=== PATIENT | male | born 1960 | race Caucasian/White ===

== ENCOUNTER 2018-07-04 18:59 | Inpatient (IN) ==
[2018-07-05] MEDS ORDERED: 0.9 % Sodium Chloride 1,000 ML IVC ONE (02:14)
[2018-07-05] MEDS ORDERED: 0.9 % Sodium Chloride 1,000 ML ONE (02:23)
--- NOTE | 2018-07-05 03:25 | Internal Med History&Physical ---
<Debra Diaz M - Last Filed: 07/05/18 04:52> Date of Encounter: 07/05/18 Time of Encounter: 03:12 Internal Medicine - H&P: HPI Chief complaint: AMS & fever Admitted From: Hospital to Hospital Transfer Plans for Post Hospital Care: Transfer Sales Development Manager Care History of present illness: Mr. Ovalles is a 57 year old male history of urethral stricture and antibiotic resistant UTI presented to [facility] ED with fever and AMS. He is resident at [facility] where he was less active today and had dark urine. Found to have temperature 103F decrease to 100.2 with Tylenol. In [facility] Ed, vitals T 97.9 RR 20 HR 88 and BP 77/54 improved to 107/72. EKG was NSR. WBC 19.9. Scr 1.96. UA showed large leuk esterase and large blood thus diagnosed with UTI and started on vanc and zosyn. Given 2 L NS and 1 L Ringers. Blood and urine culture. He was transferred to [place] due to urosepsis and he follows with Dr Funez in [place]. He requires weekly straight cath for his urethral stricture but can urinate without cath. History limited due to mental status; information obtained by chart review. He points to abdomen when asked where he has pain. PMhx includes GERD, dysphasia, distant TBI, MRDD and post CVA with left sided deficits. Past Med Surg Social Fam HX - Past Medical History Medical history: arthritis, CVA, dementia, GERD, seizures Additional medical history: head injury, peg tube placement, MRDD, chronic sinusitis, left sided weakness, Urethrial stricture - straight cathed once a week Psychiatric history: no psych history, depression, PTSD - Past Surgical History Surgical History: hip replacement, tracheostomy Additional surgical history: feeding tube - removed - Social History Smoking Status: Never smoker Smokeless Tobacco Status: No Alcohol use: none Drug use: none Internal Medicine - H&P: Meds Aripiprazole [Abilify] 5 mg PO DAILY 06/27/15 [History] CarBAMazepine [Tegretol] 200 mg PO QID 06/27/15 [History] Ferrous Sulfate 325 mg PO BID 06/27/15 [History] Omeprazole [Prilosec] 40 mg PO QAM 06/27/15 [History] Ascorbate Calcium [Vitamin C] 500 mg PO DAILY 03/26/16 [History] Baclofen [Lioresal] 10 mg PO BID 03/26/16 [History] Bethanechol Chloride [Urecholine] 25 mg PO TID 03/26/16 [History] Cetirizine HCl [Zyrtec] 10 mg PO DAILY 03/26/16 [History] Citalopram Hydrobromide [Citalopram HBr] 40 mg PO DAILY 03/26/16 [History] Cyanocobalamin (Vitamin B-12) [Vitamin B-12] 100 mcg PO DAILY 03/26/16 [History] Meloxicam [Mobic] 7.5 mg PO DAILY 03/26/16 [History] Ranitidine HCl [Heartburn Relief] 150 mg PO HS PRN 03/26/16 [History] ARIPiprazole [Abilify] 10 mg PO QAM 07/05/18 [History] Albuterol Sulfate [Ventolin Hfa] 18 gm IH Q4H PRN 07/05/18 [History] Calcium Carbonate 440 mg PO DAILY 07/05/18 [History] Calcium Gluconate 10 mg PO DAILY 07/05/18 [History] Cholecalciferol (D-3) 80 units PO DAILY 07/05/18 [History] 3 Allergy/AdvReac Type Severity Reaction Status Date / Time cholestyramine Allergy Anaphylaxis Verified 06/27/15 11:07 indomethacin Allergy Anaphylaxis Verified 06/27/15 11:07 ROS unobtainable: due to mental status All Systems PM: A 10-system review of systems was performed and is negative for pertinent findings except as documented above in the HPI. Review of systems: done my head nodding and pointing - Cardiovascular Cardiovascular ROS IM: no chest pain - Gastrointestinal Gastrointestinal: abdominal pain - Constitutional Vitals: Temp Pulse Resp BP Pulse Ox 97.4 F L 72 17 94/73 97 07/05/18 00:22 07/05/18 00:22 07/05/18 00:22 07/05/18 00:22 07/05/18 00:45 General appearance: Present: cooperative, no acute distress. Absent: answers questions appropriately Exam: He is alert and able to follow commands on exam but communication is comprised of grunts, head nods and pointing. - Head Head exam: Present: atraumatic, normocephalic - Eye Eye exam: Present: EOMI, PERRL - ENT ENT exam: Present: mucous membranes dry, normal oropharynx - Respiratory Respiratory exam: Present: CTAB. Absent: rales, wheezes - Cardiovascular Cardiovascular exam: Present: RRR. Absent: gallop, rubs - GI/Abdominal GI/Abdominal exam: Present: distended, normal bowel sounds, soft, tenderness. Absent: mass Additional comments: LLQ - Extremities Exam Extremities exam: Present: pedal edema, radial pulses palpable and symmetrical. Absent: mottling, tenderness Additional comments: trace edema up to above ankles, decrease strngth in left UE and MOLLY +4/5 compared with good strength in right - Expanded Lower Extremities Exam Foot/Toe exam: Present: deformity. Absent: tenderness - Psychiatric Psychiatric exam: Present: normal affect, normal mood - Assessment and plan (1) Sepsis Current Visit: Yes Status: Acute Assessment and plan: Likely urosepsis with SIRs criteria previous temperature and leukocytosis of 19.9. Sara had concern for PNA which is less likely considering absent signs on exam but considering lack ability to voice symptoms to consider - order chest xay. - continue zosyn - d/c vanc - maintenance IVF - consult ID as clinic patient of Dr Funez and history of antibiotic resistant UTI Qualifiers: Sepsis type: sepsis due to unspecified organism Qualified Code(s): A41.9 - Sepsis, unspecified organism (2) UTI (urinary tract infection) Current Visit: Yes Status: Acute (3) Urethral stricture Current Visit: Yes Status: Acute Assessment and plan: Hx of requring straight caths with hematuria - consider Urology consult if worsens Qualifiers: Urethral stricture type: unspecified stricture type Qualified Code(s): N35.9 - Urethral stricture, unspecified (4) MELISSA (acute kidney injury) Current Visit: Yes Status: Acute Assessment and plan: Scr 1.96 compared to baseline 1.09 in December - continue IVF - hold HCTZ - monitor with repeat labs (5) DVT prophylaxis Current Visit: Yes Status: Acute Assessment and plan: heparin - Time Spent With Patient Total time spent is greater than 50% in coordination of care (as documented) at patient's floor/unit and/or counseling patient: <Nick Hartley - Last Filed: 07/05/18 04:54> Date of Encounter: 09/12/18 Internal Medicine - H&P: HPI History of present illness: Mr. Ovalles is a 57 year old male All Systems PM: A 10-system review of systems was performed and is negative for pertinent findings except as documented above in the HPI. - Constitutional Vitals: Temp Pulse Resp BP Pulse Ox 97.6 F 85 17 100/60 95 07/05/18 04:07 07/05/18 04:07 07/05/18 04:07 07/05/18 04:07 07/05/18 04:07 - Time Spent With Patient Total time spent is greater than 50% in coordination of care (as documented) at patient's floor/unit and/or counseling patient: - Attending Attestation Betzaida Ovalles is a 57 year old man who traumatic brain injury over 20 years ago. Resultant seizure disorder and neurologic deficits who presents on transfer from [facility] where he was found to have a hypotensive state and there was concern for sepsis due to urinary tract infection and is transferred here for further care. History gathering is limited as his speech is limited although he answers appropriately. Review of outside records show that he presented with a blood pressure of 77/57 , white blood cell count of 19.9 with 92% neutrophilia, lactate 1.9, creatinine 1.96 and a UA with large leukocyte esterase, over 100 white cells and 3+ bacteria on microscopy. He received 3 L of fluids and was started on pip/tazo. On arrival here he is in no acute distress with BP improved to 90/70 and heart rate of 72. He is afebrile. Physical exam depicts a soft benign abdomen and non-remarkable chest auscultation. We obtained information that he is catheterized at least weekly for urine retention. We will obtain peripheral blood cultures here and repeat urine studies. Obtain a chest x-ray for evaluation. Maintenance IV fluids at LR 125 mL per hour. Empiric antibiotics to be continued until culture and sensitivity is obtained and antibiotics can be tailored appropriately. Mechanically altered diet and DVT prophylaxis ordered. He will need close nursing monitoring. Recheck BMP and CBC in the morning to assess for reduction in creatinine and white blood cell count.
[2018-07-05 05:05] LABS: Basophils % 0.3 %; Eosinophils # 0.1 K/mcL (0.0-0.6); Eosinophils % 0.8 %; Hematocrit 34.8 % (37.5-50.1); Hemoglobin 11.8 g/dL (12.9-16.9); Immature Granulocytes % 0.3 % (0-4); Lymphocytes % 7.8 %; Mean Corpuscular HGB Conc 33.9 g/dL (31.6-35.5); Mean Corpuscular Volume 100.3 fL (83.0-100.0); Monocytes # 0.9 K/mcL (0.0-1.3); Monocytes % 7.2 %; Neutrophils # 10.6 K/mcL (1.6-8.9); Platelet Count 165 K/mcL (140-400); Red Blood Count 3.47 M/mcL (4.19-5.50); Red Cell Distribution Width 13.1 % (11.5-14.5); Segmented Neutrophils % 83.6 %
[2018-07-05 05:32] LABS: Alanine Aminotransferase 21 Units/L (7-52); Alkaline Phosphatase 46 Units/L (34-104); Aspartate Amino Transferase 37 Units/L (13-39); BUN/Creatinine Ratio 21 (6-26); Bilirubin,Direct 0.2 mg/dL (0.0-0.2); Bilirubin,Indirect 0.4 mg/dL (0.0-1.2); Bilirubin,Total 0.6 mg/dL (0.3-1.0); Blood Urea Nitrogen 30 mg/dL (6-20); Carbon Dioxide 26 mEq/L (23-29); Chloride 108 mEq/L (98-107); Globulin 2.9 g/dL (2.4-3.5); Glucose 85 mg/dL (70-105); Osmolality,Calculated 295 (280-300); Potassium 3.7 mEq/L (3.5-5.1); Sodium 140 mEq/L (136-145); Total Protein 5.9 g/dL (6.4-8.9); eGFR For Non-African Americans 52 (> 60)
[2018-07-05] MEDS ORDERED: 0.9 % Sodium Chloride 1,000 ML IVC SCH (05:45)
[2018-07-05] MEDS: *HR* Heparin 5,000 UNIT/ML VIAL SQ SCH ×3 (06:14→20:11)
[2018-07-05] MEDS: ARIPiprazole 10 MG TABLET PO SCH (06:14)
[2018-07-05] MEDS: Ringers Solution, Lactated 1,000 ML IVC SCH ×2 (06:42→15:48)
[2018-07-05] MEDS ORDERED: Famotidine 20 MG TABLET PO SCH (07:30)
[2018-07-05] MEDS: Psyllium 1 PACKET POWD.PACK PO SCH (07:56)
[2018-07-05] MEDS: Loratadine 10 MG TABLET PO SCH ×2 (08:03→08:04)
[2018-07-05] MEDS: Ascorbic Acid 500 MG TABLET PO SCH (08:03)
[2018-07-05] MEDS: Cholecalciferol (D-3) 1,000 UNIT TABLET PO SCH (08:03)
[2018-07-05] MEDS: Cyanocobalamin (B-12) 1,000 MCG TABLET PO SCH (08:04)
[2018-07-05] MEDS: Piperacillin/Tazobactam 3.375 GM in 0.9 % Sodium Chloride Mini Bag 100 ML IVPB SCH ×3 (08:12→23:25)
[2018-07-05] MEDS ORDERED: hydroCHLOROthiazide 25 MG TABLET PO SCH (09:00)
[2018-07-05] MEDS ORDERED: Baclofen 10 MG TABLET PO SCH ×2 (09:00→18:00)
--- NOTE | 2018-07-05 13:25 | Urology - Consult Note ---
<Talia Delgado N - Last Filed: 07/05/18 13:21> Date of Encounter: 07/05/18 Time of Encounter: 13:21 - Assessment and Plan (1) UTI (urinary tract infection) Current Visit: Yes Status: Acute Assessment and plan: Patient is a 57 year old male who presents with a history of urinary tract infection. Urinalysis and urine culture is pending. Blood cultures are pending. Patient's vital signs are currently stable and afebrile. May continue antibiotic infusion and reevaluate. Qualifiers: Urinary tract infection type: catheter-associated UTI Qualified Code(s): T83.511A - Infection and inflammatory reaction due to indwelling urethral catheter, initial encounter; N39.0 - Urinary tract infection, site not specified (2) Urethral stricture Current Visit: Yes Status: Acute Assessment and plan: Patient is a 57 year old male who presents with a history of urethral stricture. Nursing staff reports patient has been incontinent during admission and appears to be producing sufficient quantity of urine. Patient undergoes intermittent catheterization weekly to maintain patency. Plan to discuss options for stricture repair with POA if needed or desired. Qualifiers: Urethral stricture type: unspecified stricture type Qualified Code(s): N35.9 - Urethral stricture, unspecified Urology CN:[facility] Consult date: 07/05/18 Reason for consult Urology: Other (urethral stricture; history of recurrent UTI) History of present illness: Patient is a 57 year old male who presents with a history of urethral stricture and recurrent UTI. Patient initially presented to [facility] ED for evaluation of fever and concentrated urine. Preliminary urinalysis at [facility] suggested UTI. Patient was transferred to [facility] for urosepsis. Patient has been placed on IV Vancomycin and Zosyn. Patient is developmentally delayed and lives in a long-term setting. Patient is unable to effectively communicate symptoms. Nursing staff reports patient is afebrile and incontinent. No gross blood in urine. Patient is catheterized weekly to prevent worsening stricture. Urinalysis pending. Past Med Surg Social Fam HX - Past Medical History Medical history: arthritis, CVA, dementia, GERD, seizures Additional medical history: head injury, peg tube placement, MRDD, chronic sinusitis, left sided weakness, Urethrial stricture - straight cathed once a week Psychiatric history: no psych history, depression, PTSD - Past Surgical History Surgical History: hip replacement, tracheostomy Additional surgical history: feeding tube - removed - Social History Smoking Status: Never smoker Smokeless Tobacco Status: No Alcohol use: none Drug use: none Medications and Allergies Aripiprazole [Abilify] 5 mg PO 1500 06/27/15 [History] Ferrous Sulfate 325 mg PO BID 06/27/15 [History] Omeprazole [Prilosec] 40 mg PO QAM 06/27/15 [History] Ascorbate Calcium [Vitamin C] 500 mg PO DAILY 03/26/16 [History] Baclofen [Lioresal] 10 mg PO BID 03/26/16 [History] Bethanechol Chloride [Urecholine] 25 mg PO TID 03/26/16 [History] Cetirizine HCl [Zyrtec] 10 mg PO DAILY 03/26/16 [History] Citalopram Hydrobromide [Citalopram HBr] 40 mg PO DAILY 03/26/16 [History] Cyanocobalamin (Vitamin B-12) [Vitamin B-12] 100 mcg PO DAILY 03/26/16 [History] Meloxicam [Mobic] 7.5 mg PO DAILY 03/26/16 [History] ARIPiprazole [Abilify] 10 mg PO QAM 07/05/18 [History] Albuterol Sulfate [Ventolin Hfa] 18 gm IH Q4H PRN 07/05/18 [History] Calcium Carbonate/Vitamin D3 [Calcium 600-Vit D3 400 Tablet] 2 tab PO DAILY 10/10 [History] Hydrochlorothiazide [Microzide] 12.5 mg PO DAILY 07/05/18 [History] 3 Allergy/AdvReac Type Severity Reaction Status Date / Time cholestyramine Allergy Anaphylaxis Verified 06/27/15 11:07 indomethacin Allergy Anaphylaxis Verified 06/27/15 11:07 Review of Systems ROS unobtainable: due to mental status Exam Initial Vital Signs Temp Pulse Resp BP Pulse Ox 97.4 F L 72 17 94/73 97 07/05/18 00:22 07/05/18 00:22 07/05/18 00:22 07/05/18 00:22 07/05/18 00:22 - General physical appearance Present: no distress, no pain - Eyes Present: PERRL, normal ocular movement - ENT Present: no hearing loss, no congestion - Neck Present: no masses, trachea midline - Respiratory Present: normal respiratory effort - Cardiovascular Cardiovascular exam IM: RRR - Abdomen Abdomen: Present: soft, non tender - Integumentary Present: no rash, no abnormal pigmentation - Neurologic Present: normal coordination. Absent: disoriented Urology Results - Labs 07/05/18 04:43 07/05/18 04:43 Abnormal lab results WBC 12.6 K/mcL (4.3-11.1) H 07/05/18 04:43 RBC 3.47 M/mcL (4.19-5.50) L 07/05/18 04:43 Hgb 11.8 g/dL (12.9-16.9) L 07/05/18 04:43 Hct 34.8 % (37.5-50.1) L 07/05/18 04:43 MCV 100.3 fL (83.0-100.0) H 07/05/18 04:43 MCH 34.0 pg (28.0-33.3) H 07/05/18 04:43 MPV 9.0 fL (9.4-12.4) L 07/05/18 04:43 Neutrophils # 10.6 K/mcL (1.6-8.9) H 07/05/18 04:43 Chloride 108 mEq/L (98-107) H 07/05/18 04:43 BUN 30 mg/dL (6-20) H 07/05/18 04:43 Creatinine 1.40 mg/dL (0.70-1.30) H 07/05/18 04:43 Est GFR (Non-Af Amer) 52 (> 60) L 07/05/18 04:43 Calcium 8.0 mg/dL (8.6-10.3) L 07/05/18 04:43 Serum Total Protein 5.9 g/dL (6.4-8.9) L 07/05/18 04:43 Albumin 3.0 g/dL (3.5-5.7) L 07/05/18 04:43 Albumin/Globulin Ratio 1.0 (1.1-2.2) L 07/05/18 04:43 Diabetes panel 07/05/18 Range/Units 04:43 Sodium 140 (136-145) mEq/L Potassium 3.7 (3.5-5.1) mEq/L Chloride 108 H (98-107) mEq/L Carbon Dioxide 26 (23-29) mEq/L BUN 30 H (6-20) mg/dL Creatinine 1.40 H (0.70-1.30) mg/dL Glucose 85 (70-105) mg/dL Calcium 8.0 L (8.6-10.3) mg/dL AST 37 (13-39) Units/L ALT 21 (7-52) Units/L Alkaline Phosphatase 46 (34-104) Units/L Albumin 3.0 L (3.5-5.7) g/dL Calcium panel 07/05/18 Range/Units 04:43 Calcium 8.0 L (8.6-10.3) mg/dL Albumin 3.0 L (3.5-5.7) g/dL Pituitary panel 07/05/18 Range/Units 04:43 Sodium 140 (136-145) mEq/L Potassium 3.7 (3.5-5.1) mEq/L Chloride 108 H (98-107) mEq/L Carbon Dioxide 26 (23-29) mEq/L BUN 30 H (6-20) mg/dL Creatinine 1.40 H (0.70-1.30) mg/dL Glucose 85 (70-105) mg/dL Calcium 8.0 L (8.6-10.3) mg/dL Adrenal panel 07/05/18 Range/Units 04:43 Sodium 140 (136-145) mEq/L Potassium 3.7 (3.5-5.1) mEq/L Chloride 108 H (98-107) mEq/L Carbon Dioxide 26 (23-29) mEq/L BUN 30 H (6-20) mg/dL Creatinine 1.40 H (0.70-1.30) mg/dL Glucose 85 (70-105) mg/dL Calcium 8.0 L (8.6-10.3) mg/dL Total Bilirubin 0.6 (0.3-1.0) mg/dL AST 37 (13-39) Units/L ALT 21 (7-52) Units/L Alkaline Phosphatase 46 (34-104) Units/L Albumin 3.0 L (3.5-5.7) g/dL All other labs normal. Consult Discharge Plan - Plan Referrals: Arnaud Nixon DO [Primary Care Provider] - <Ovi Ca W - Last Filed: 07/06/18 07:29> Date of Encounter: 07/06/18 Exam Initial Vital Signs Temp Pulse Resp BP Pulse Ox 97.4 F L 72 17 94/73 97 07/05/18 00:22 18 00:22 07/05/18 00:22 07/05/18 00:22 07/05/18 00:22 Urology Results - Labs 07/06/18 04:23 07/06/18 04:23 Abnormal lab results RBC 3.29 M/mcL (4.19-5.50) L 07/06/18 04:23 Hgb 11.3 g/dL (12.9-16.9) L 07/06/18 04:23 Hct 32.6 % (37.5-50.1) L 07/06/18 04:23 MCH 34.3 pg (28.0-33.3) H 07/06/18 04:23 Chloride 109 mEq/L (98-107) H 07/06/18 04:23 BUN 21 mg/dL (6-20) H 07/06/18 04:23 Est GFR (Non-Af Amer) 58 (> 60) L 07/06/18 04:23 Calcium 8.1 mg/dL (8.6-10.3) L 07/06/18 04:23 Serum Total Protein 5.9 g/dL (6.4-8.9) L 07/05/18 04:43 Albumin 3.0 g/dL (3.5-5.7) L 07/05/18 04:43 Albumin/Globulin Ratio 1.0 (1.1-2.2) L 07/05/18 04:43 Urine Clarity Cloudy (Clear) A 07/05/18 18:57 Urine Protein 30 mg/dL (Neg-Trace) H 07/05/18 18:57 Urine Blood Large (Negative) H 07/05/18 18:57 Ur Leukocyte Esterase Large (Negative) H 07/05/18 18:57 Urine Microscopic RBC 5-15 per hpf (0-3) H 07/05/18 18:57 Ur Squamous Epith Cells Moderate per lpf (None-Few) H 07/05/18 18:57 Ur Culture Indicated? YES (NO) A 09/12/18 18:57 Nasal Screen MRSA (PCR) Positive (Negative) A 07/05/18 19:08 Diabetes panel 07/06/18 Range/Units 04:23 Sodium 139 (136-145) mEq/L Potassium 4.1 (3.5-5.1) mEq/L Chloride 109 H (98-107) mEq/L Carbon Dioxide 24 (23-29) mEq/L BUN 21 H (6-20) mg/dL Creatinine 1.27 (0.70-1.30) mg/dL Glucose 90 (70-105) mg/dL Calcium 8.1 L (8.6-10.3) mg/dL Calcium panel 07/06/18 Range/Units 04:23 Calcium 8.1 L (8.6-10.3) mg/dL Pituitary panel 07/06/18 Range/Units 04:23 Sodium 139 (136-145) mEq/L Potassium 4.1 (3.5-5.1) mEq/L Chloride 109 H (98-107) mEq/L Carbon Dioxide 24 (23-29) mEq/L BUN 21 H (6-20) mg/dL Creatinine 1.27 (0.70-1.30) mg/dL Glucose 90 (70-105) mg/dL Calcium 8.1 L (8.6-10.3) mg/dL Adrenal panel 07/06/18 Range/Units 04:23 Sodium 139 (136-145) mEq/L Potassium 4.1 (3.5-5.1) mEq/L Chloride 109 H (98-107) mEq/L Carbon Dioxide 24 (23-29) mEq/L BUN 21 H (6-20) mg/dL Creatinine 1.27 (0.70-1.30) mg/dL Glucose 90 (70-105) mg/dL Calcium 8.1 L (8.6-10.3) mg/dL All other labs normal. - Attending Attestation The patient is seen and examined independent of the PA. He is a 57-year-old man with developmental delay. There is concern for urethral stricture and he is catheterized weekly. A condom catheter was placed. His urine is clear today. A bladder scan is pending. He was admitted for urinary tract infection. I will await the results of the bladder scan. Appreciate infectious disease support. Await urine culture results and tailor antibiotics accordingly. I would recommend a cystoscopy as an outpatient to evaluate for the stricture. I think it is reasonable to continue with the weekly catheterizations to maintain patency of his stricture. This does pose an infectious risk, but he is likely colonized with bacteria. Urology will follow along. Thank you very much for allowing us to participate in Mr. Ovalles's care.
[2018-07-05] MEDS ORDERED: ARIPiprazole 5 MG TABLET PO SCH (15:00)
--- NOTE | 2018-07-05 15:08 | Infectious Disease Consult ---
Date of Encounter: 07/05/18 Time of Encounter: 15:07 Assessment and Plan (1) MELISSA (acute kidney injury) Status: Acute Assessment and plan: Likely secondary to sepsis. BUN 30 creatinine 1.4 (2) Sepsis Status: Acute Assessment and plan: Patient had to serve criteria on admission including fever and leukocytosis Likely secondary to UTI versus pneumonia Qualifiers: Sepsis type: sepsis due to unspecified organism Qualified Code(s): A41.9 - Sepsis, unspecified organism (3) UTI (urinary tract infection) Status: Acute Assessment and plan: Previous cultures in the patients have grown: Klebsiella pneumoniae on 03/30/2018, 03/07/2018, 01/17/2018 and 11/08/2017. Citrobacter from the urine culture positive on 07/14/2017, 04/01/2017, oct 2016 , and 08/26/2016. Morganella Morgagni.in 2014 All these bacteria have been susceptible to Zosyn Get a urinalysis and urine culture Dose adjust Zosyn based on creatinine clearance which is 3.375 g IV every 8 hours Duration of treatment likely 10-14 days Await urine cultures to finalize to tailor antibiotics accordingly Qualifiers: Urinary tract infection type: catheter-associated UTI Qualified Code(s): T83.511A - Infection and inflammatory reaction due to indwelling urethral catheter, initial encounter; N39.0 - Urinary tract infection, site not specified (4) Urethral stricture Status: Acute Qualifiers: Urethral stricture type: unspecified stricture type Qualified Code(s): N35.9 - Urethral stricture, unspecified (5) Pneumonia Status: Suspected Assessment and plan: Questionable pneumonia on the x-ray Patient unable to give me any history but there is no obvious cough When I spoke with the sister she told me that he aspirates Check urine legionella and pneumococcal antigen Check respiratory infectious panel Continue Zosyn Qualifiers: Pneumonia type: due to unspecified organism Laterality: unspecified laterality Lung location: unspecified part of lung Qualified Code(s): J18.9 - Pneumonia, unspecified organism Infectious Disease HPI - Data of Consult Patient: new to practice Consult date: 07/05/18 Requesting Physician: Jt Guzman MD Primary Care Provider: Arnaud Nixon DO - Consult Narrative Reason for consult: MDR UTI History of present illness: Mr. Ovalles is a 57 year old male Patient is a 57-year-old gentleman who was transferred to [place] this morning from an outside hospital for altered mental status fevers and chills. We are consult did for antibiotics recommendation. Patient is 70-year-old gentleman with past medical history mentioned below including CVA, dementia, seizures and urethral strictures with history of resistant urinary tract infections in the past presented to [facility] emergency department with fever and altered mental status. Apparently what patient was febrile with a temperature of 103 Fahrenheit. Patient is unable to give me any history. Patient apparently had a head around when he was 18 and is nonverbal. Sister who is also his guardian is at bedside. She tells me the reason the bottom and is because when he is not pain or when he is not feeling well he becomes combative and he starts acting up. So they brought him in. Since admission, patient has been afebrile, no tachycardia, presenting labs revealed a WBC of 12.6 thousand with 84% neutrophils no bands. Patients BUN and creatinine were 30 and 1.4 respectively. No urinalysis was obtained. Previous cultures in the patients have grown Klebsiella pneumoniae on 2017, 03/07/2018, 01/17/2018 and 11/08/2017. Prior to that he has had Citrobacter from the urine culture positive on 07/14/2017, 04/01/2017, every 2016, and 08/26/2016. And prior to that he had 2 urine cultures positive in 2014 which were Morganella Morgagni. Patient was started on Zosyn and we are asked to evaluate the patient and make further recommendations. On further questioning, patient has not had a urinalysis or urine culture done because he does not have a catheter. I spoke with Bill the nurse and asked him to either straight The patient fully and temporarily to look at the urine testing. Patient has not any decubitus ulcers. Rest of the physical exam appear stable. CC: Jt Guzman MD Past Med Surg Social Fam HX - Past Medical History Medical history: arthritis, CVA, dementia, GERD, seizures Additional medical history: head injury, peg tube placement, MRDD, chronic sinusitis, left sided weakness, Urethrial stricture - straight cathed once a week Psychiatric history: no psych history, depression, PTSD - Past Surgical History Surgical History: hip replacement, tracheostomy Additional surgical history: feeding tube - removed - Social History Smoking Status: Never smoker Smokeless Tobacco Status: No Alcohol use: none Drug use: none Infectious Disease-CN:Meds Aripiprazole [Abilify] 5 mg PO 1500 06/27/15 [History] Ferrous Sulfate 325 mg PO BID 06/27/15 [History] Omeprazole [Prilosec] 40 mg PO QAM 06/27/15 [History] Ascorbate Calcium [Vitamin C] 500 mg PO DAILY 03/26/16 [History] Baclofen [Lioresal] 10 mg PO BID 03/26/16 [History] Bethanechol Chloride [Urecholine] 25 mg PO TID 03/26/16 [History] Cetirizine HCl [Zyrtec] 10 mg PO DAILY 03/26/16 [History] Citalopram Hydrobromide [Citalopram HBr] 40 mg PO DAILY 03/26/16 [History] Cyanocobalamin (Vitamin B-12) [Vitamin B-12] 100 mcg PO DAILY 03/26/16 [History] Meloxicam [Mobic] 7.5 mg PO DAILY 03/26/16 [History] ARIPiprazole [Abilify] 10 mg PO QAM 07/05/18 [History] Albuterol Sulfate [Ventolin Hfa] 18 gm IH Q4H PRN 07/05/18 [History] Calcium Carbonate/Vitamin D3 [Calcium 600-Vit D3 400 Tablet] 2 tab PO DAILY 10/10 [History] Hydrochlorothiazide [Microzide] 12.5 mg PO DAILY 07/05/18 [History] 3 Allergy/AdvReac Type Severity Reaction Status Date / Time cholestyramine Allergy Anaphylaxis Verified 06/27/15 11:07 indomethacin Allergy Anaphylaxis Verified 06/27/15 11:07 ROS unobtainable: due to mental status Exam - Constitutional Vitals: Temp Pulse Resp BP Pulse Ox 98.5 F 89 16 101/67 95 07/05/18 11:08 07/05/18 11:08 07/05/18 11:08 07/05/18 11:08 07/05/18 11:08 General appearance: no acute distress, no febrile, no cooperative - Head Head exam: Present: atraumatic, normocephalic - Eye Eye exam: Present: EOMI, PERRL, sclera anicteric - Respiratory Respiratory exam: Present: CTAB. Absent: wheezes - Cardiovascular Cardiovascular exam: Present: RRR, +S1, +S2 - GI/Abdominal GI/Abdominal exam: Present: normal bowel sounds, soft. Absent: tenderness - Extremities Exam Extremities exam: Present: normal inspection. Absent: joint swelling Additional comments: No decubitus ulcer noted - Neurological Exam Neurological exam: Present: speech deficit. Absent: alert, oriented X3 Additional comments: Patient nonverbal Infectious Disease CN: Results - Labs CBC & Chem 7: 07/05/18 04:43 07/05/18 04:43 Cultures: Cultures 07/05/18 04:53 Blood Culture - Preliminary Peripheral Venipuncture Culture is incubating and being continuously monitored for growth. Final report to follow. 07/05/18 04:38 Blood Culture - Preliminary Peripheral Venipuncture Culture is incubating and being continuously monitored for growth. Final report to follow. Serology: Serology 07/05/18 07/05/18 07/05/18 Range/Units 06:01 04:43 04:43 WBC 12.6 H (4.3-11.1) K/mcL RBC 3.47 L (4.19-5.50) M/mcL Hgb 11.8 L (12.9-16.9) g/dL Hct 34.8 L (37.5-50.1) % MCV 100.3 H (83.0-100.0) fL MCH 34.0 H (28.0-33.3) pg MCHC 33.9 (31.6-35.5) g/dL RDW 13.1 (11.5-14.5) % Plt Count 165 (140-400) K/mcL MPV 9.0 L (9.4-12.4) fL Immature Gran % 0.3 (0-4) % Seg Neutrophils % 83.6 % Lymphocytes % 7.8 % Monocytes % 7.2 % Eosinophils % 0.8 % Basophils % 0.3 % Neutrophils # 10.6 H (1.6-8.9) K/mcL Lymphocytes # 1.0 (0.6-4.6) K/mcL Monocytes # 0.9 (0.0-1.3) K/mcL Eosinophils # 0.1 (0.0-0.6) K/mcL Basophils # 0.0 (0.0-0.2) K/mcL Sodium 140 (136-145) mEq/L Potassium 3.7 (3.5-5.1) mEq/L Chloride 108 H (98-107) mEq/L Carbon Dioxide 26 (23-29) mEq/L BUN 30 H (6-20) mg/dL Creatinine 1.40 H (0.70-1.30) mg/dL Est GFR ( Amer) > 60 (> 60) Est GFR (Non-Af Amer) 52 L (> 60) BUN/Creatinine Ratio 21 (6-26) Glucose 85 (70-105) mg/dL Calculated Osmolality 295 (280-300) Lactic Acid 0.8 (0.5-2.2) mmol/L Calcium 8.0 L (8.6-10.3) mg/dL Total Bilirubin 0.6 (0.3-1.0) mg/dL Direct Bilirubin 0.2 (0.0-0.2) mg/dL Indirect Bilirubin 0.4 (0.0-1.2) mg/dL AST 37 (13-39) Units/L ALT 21 (7-52) Units/L Alkaline Phosphatase 46 (34-104) Units/L Serum Total Protein 5.9 L (6.4-8.9) g/dL Albumin 3.0 L (3.5-5.7) g/dL Globulin 2.9 (2.4-3.5) g/dL Albumin/Globulin Ratio 1.0 L (1.1-2.2) Consult Discharge Plan - Plan Referrals: Arnaud Nixon DO [Primary Care Provider] -
[2018-07-05] MEDS: ARIPiprazole 5 MG TABLET PO SCH (15:54)
--- NOTE | 2018-07-05 17:43 | Internal Med Progress Note ---
<Brady Gustafson - Last Filed: 07/05/18 17:40> Hospitalist Progress Note - Encounter Date of Encounter: 07/05/18 Time of Encounter: 09:00 - Subjective Interval History: Patient was admitted for UTI and AMS Patient in no acute distress, no acute events overnight Patient complained of continued abdominal pain, no other acute complaints - Exam Vitals: Temp Pulse Resp BP Pulse Ox 99.1 F 89 16 109/68 92 07/05/18 16:59 07/05/18 16:59 07/05/18 16:59 07/05/18 16:59 07/05/18 16:59 Exam: No acute distress, alert and oriented to person and situation, she is unable to answer complicated questions Heart in regular rate and rhythm without murmur or gallop Lungs clear to auscultation without wheeze or rales or rhonchi Abdomen soft and mildly tender in suprapubic region, no organomegaly, bowel sounds present and normal Bilateral lower extremities nonedematous or erythematous, left lower extremity tender to palpation posteriorly Skin warm and dry - Assessment and Plan (1) Sepsis Current Visit: Yes Status: Acute Assessment and Plan: Patient septic secondary to white count and source, hemodynamically stable, improving Patient on day 1 of Zosyn, white count improved to 12 Plan ID consult for recommendations on antibiotic coverage as patient has history of recurrent complicated UTI Continue Zosyn for the time being Maintenance IVF (2) UTI (urinary tract infection) Current Visit: Yes Status: Acute Assessment and Plan: Patient presented with UTI Patient does make urine but is straight cast weekly secondary to urethral stricture He does still complain of abdominal pain Cultures have not revealed growth yet Plan as seen above (3) Urethral stricture Current Visit: Yes Status: Acute Assessment and Plan: Urology consultation to determine need for further intervention in the face of recurrent complicated UTIs secondary to need for repeated catheterization (4) DVT prophylaxis Current Visit: Yes Status: Acute Assessment and Plan: Heparin 5000 units subcutaneous every 8 hours (5) MELISSA (acute kidney injury) Current Visit: Yes Status: Acute Assessment and Plan: Elevated creatinine on admission, 1.4, baseline appears to be one paste on previous admissions Plan We will continue maintenance IV fluids Continue to monitor AM labs Avoid nephrotoxins and renally dose medications (6) Pneumonia Current Visit: Yes Status: Suspected Assessment and Plan: Patient was admitted from [facility] who had concern for pneumonia Chest x-ray revealed bilateral lower lobe infiltrates that could represent atelectasis or pneumonia Patient is asymptomatic and does not demonstrate physical exam findings of pneumonia Plan Continue Zosyn Defer to infectious disease specialists for alteration of antimicrobial therapy Continue to monitor for worsening respiratory function or exam findings - Time Spent with Patient Total time spent is greater than 50% in coordination of care (as documented) at patient's floor/unit and/or counseling patient: Internal Medicine: Result - Labs CBC & Chem 7: 07/05/18 04:43 07/05/18 04:43 Labs: Short CBC 07/05/18 Range/Units 04:43 WBC 12.6 H (4.3-11.1) K/mcL Hgb 11.8 L (12.9-16.9) g/dL Hct 34.8 L (37.5-50.1) % Plt Count 165 (140-400) K/mcL Neutrophils # 10.6 H (1.6-8.9) K/mcL BMP 07/05/18 04:43 Sodium 140 Potassium 3.7 Chloride 108 H Carbon Dioxide 26 BUN 30 H Creatinine 1.40 H Glucose 85 Calcium 8.0 L Liver Function 07/05/18 Range/Units 04:43 Total Bilirubin 0.6 (0.3-1.0) mg/dL Direct Bilirubin 0.2 (0.0-0.2) mg/dL AST 37 (13-39) Units/L ALT 21 (7-52) Units/L Alkaline Phosphatase 46 (34-104) Units/L Albumin 3.0 L (3.5-5.7) g/dL - Impressions Impressions Chest X-Ray 07/05/18 06:00 IMPRESSION: 1. Bibasilar pulmonary opacities may represent atelectasis, pneumonia, and/or pleural effusions. Recommend radiographic follow-up to complete resolution. 2. Unchanged nonspecific elevation of right hemidiaphragm. D/ / Dc Lebron MD / Dc Lebron MD Interpreting Provider: Dc Lebron MD Consult Discharge Plan - Plan Referrals: Arnaud Nixon DO [Primary Care Provider] - <Jt Guzman - Last Filed: 07/05/18 18:08> Hospitalist Progress Note - Encounter Date of Encounter: 07/05/18 - Exam Vitals: Temp Pulse Resp BP Pulse Ox 99.1 F 89 16 109/68 92 07/05/18 16:59 07/05/18 16:59 07/05/18 16:59 07/05/18 16:59 07/05/18 16:59 - Assessment and Plan (1) Sepsis Current Visit: Yes Status: Acute (2) UTI (urinary tract infection) Current Visit: Yes Status: Acute (3) Urethral stricture Current Visit: Yes Status: Acute (4) DVT prophylaxis Current Visit: Yes Status: Acute (5) MELISSA (acute kidney injury) Current Visit: Yes Status: Acute (6) Pneumonia Current Visit: Yes Status: Suspected - Time Spent with Patient Total time spent is greater than 50% in coordination of care (as documented) at patient's floor/unit and/or counseling patient: Internal Medicine: Result - Labs CBC & Chem 7: 07/05/18 04:43 07/05/18 04:43 Labs: Short CBC 07/05/18 Range/Units 04:43 WBC 12.6 H (4.3-11.1) K/mcL Hgb 11.8 L (12.9-16.9) g/dL Hct 34.8 L (37.5-50.1) % Plt Count 165 (140-400) K/mcL Neutrophils # 10.6 H (1.6-8.9) K/mcL BMP 07/05/18 04:43 Sodium 140 Potassium 3.7 Chloride 108 H Carbon Dioxide 26 BUN 30 H Creatinine 1.40 H Glucose 85 Calcium 8.0 L Liver Function 07/05/18 Range/Units 04:43 Total Bilirubin 0.6 (0.3-1.0) mg/dL Direct Bilirubin 0.2 (0.0-0.2) mg/dL AST 37 (13-39) Units/L ALT 21 (7-52) Units/L Alkaline Phosphatase 46 (34-104) Units/L Albumin 3.0 L (3.5-5.7) g/dL - Impressions Impressions Chest X-Ray 07/05/18 06:00 IMPRESSION: 1. Bibasilar pulmonary opacities may represent atelectasis, pneumonia, and/or pleural effusions. Recommend radiographic follow-up to complete resolution. 2. Unchanged nonspecific elevation of right hemidiaphragm. D/ / Dc Lebron MD / Dc Lebron MD Interpreting Provider: Dc Lebron MD - Attending Attestation I examined this patient and my medical decision-making was reviewed with the Resident Physician. I agree with the documented findings, disposition and treatment plan as described except to the extent set forth below. <Brady Gustafson - Last Filed: 07/05/18 17:40> (1) Sepsis Qualifiers: Sepsis type: sepsis due to unspecified organism Qualified Code(s): A41.9 - Sepsis, unspecified organism (2) UTI (urinary tract infection) Qualifiers: Urinary tract infection type: catheter-associated UTI Qualified Code(s): T83.511A - Infection and inflammatory reaction due to indwelling urethral catheter, initial encounter; N39.0 - Urinary tract infection, site not specified (3) Urethral stricture Qualifiers: Urethral stricture type: unspecified stricture type Qualified Code(s): N35.9 - Urethral stricture, unspecified (6) Pneumonia Qualifiers: Pneumonia type: due to unspecified organism Laterality: unspecified laterality Lung location: unspecified part of lung Qualified Code(s): J18.9 - Pneumonia, unspecified organism <Jt Guzman - Last Filed: 07/05/18 18:08> (1) Sepsis Qualifiers: Sepsis type: sepsis due to unspecified organism Qualified Code(s): A41.9 - Sepsis, unspecified organism (2) UTI (urinary tract infection) Qualifiers: Urinary tract infection type: catheter-associated UTI Qualified Code(s): T83.511A - Infection and inflammatory reaction due to indwelling urethral catheter, initial encounter; N39.0 - Urinary tract infection, site not specified (3) Urethral stricture Qualifiers: Urethral stricture type: unspecified stricture type Qualified Code(s): N35.9 - Urethral stricture, unspecified (6) Pneumonia Qualifiers: Pneumonia type: due to unspecified organism Laterality: unspecified laterality Lung location: unspecified part of lung Qualified Code(s): J18.9 - Pneumonia, unspecified organism
[2018-07-05 19:12] LABS: Bilirubin,Urine Negative (Negative); Blood,Urine Large (Negative); Clarity,Urine Cloudy (Clear); Color,Urine Yellow (Yellow); Glucose,Urine (UA) Normal (Normal); Ketones,Urine Negative (Negative); Leukocyte Esterase,Urine Large (Negative); Nitrite,Urine Negative (Negative); Protein,Urine 30 mg/dL (Neg-Trace); Urobilinogen,Urine Normal (Normal)
[2018-07-05 19:14] LABS: Bacteria,Urine None Seen per hpf (None-Few); Hyaline Casts,Urine None Seen per lpf (None-Few); Squamous Epithelial Cell,Urine Moderate per lpf (None-Few)
[2018-07-05 20:00] LABS: Adenovirus Not Detected (Not Detect); Bordetella Pertussis Not Detected (Not Detect); Chlamydophila pneumoniae Not Detected (Not Detect); Coronavirus 229E Not Detected (Not Detect); Coronavirus HKU1 Not Detected (Not Detect); Coronavirus NL63 Not Detected (Not Detect); Coronavirus OC43 Not Detected (Not Detect); Human Metapneumovirus Not Detected (Not Detect); Human Rhinovirus/Enterovirus Not Detected (Not Detect); Influenza A Subtype 2009 H1 Not Detected (Not Detect); Influenza A Untypeable Not Detected (Not Detect); Influenza B Not Detected (Not Detect); Mycoplasma pneumoniae Not Detected (Not Detect); Parainfluenza Virus 1 Not Detected (Not Detect); Parainfluenza Virus 2 Not Detected (Not Detect); Parainfluenza Virus 3 Not Detected (Not Detect); Parainfluenza Virus 4 Not Detected (Not Detect); Respiratory Syncytial Virus Not Detected (Not Detect)
[2018-07-05] MEDS: Baclofen 10 MG TABLET PO SCH (20:10)
[2018-07-06 05:22] LABS: Basophils % 0.5 %; Eosinophils # 0.2 K/mcL (0.0-0.6); Eosinophils % 2.6 %; Hematocrit 32.6 % (37.5-50.1); Hemoglobin 11.3 g/dL (12.9-16.9); Immature Granulocytes % 0.2 % (0-4); Lymphocytes # 1.6 K/mcL (0.6-4.6); Lymphocytes % 25.3 %; Mean Corpuscular HGB Conc 34.7 g/dL (31.6-35.5); Mean Corpuscular Hemoglobin 34.3 pg (28.0-33.3); Mean Corpuscular Volume 99.1 fL (83.0-100.0); Mean Platelet Volume 9.6 fL (9.4-12.4); Monocytes # 0.7 K/mcL (0.0-1.3); Monocytes % 11.5 %; Neutrophils # 3.7 K/mcL (1.6-8.9); Platelet Count 157 K/mcL (140-400); Red Blood Count 3.29 M/mcL (4.19-5.50); Segmented Neutrophils % 59.9 %
[2018-07-06] MEDS: *HR* Heparin 5,000 UNIT/ML VIAL SQ SCH ×3 (05:27→21:41)
[2018-07-06 05:40] LABS: BUN/Creatinine Ratio 17 (6-26); Blood Urea Nitrogen 21 mg/dL (6-20); Calcium 8.1 mg/dL (8.6-10.3); Carbon Dioxide 24 mEq/L (23-29); Chloride 109 mEq/L (98-107); Glucose 90 mg/dL (70-105); Osmolality,Calculated 291 (280-300); Potassium 4.1 mEq/L (3.5-5.1); Sodium 139 mEq/L (136-145); eGFR For Non-African Americans 58 (> 60)
[2018-07-06] MEDS: ARIPiprazole 10 MG TABLET PO SCH (06:34)
--- NOTE | 2018-07-06 08:32 | Urology Progress Note ---
Date of Encounter: 07/06/18 Time of Encounter: 08:30 - Assessment and Plan (1) UTI (urinary tract infection) Current Visit: Yes Status: Acute Assessment and plan: Patient is a 57 year old male who presents with urinary tract infection. Vital signs are reassuring and afebrile. Cultures pending. Qualifiers: Urinary tract infection type: catheter-associated UTI Qualified Code(s): T83.511A - Infection and inflammatory reaction due to indwelling urethral catheter, initial encounter; N39.0 - Urinary tract infection, site not specified (2) Urethral stricture Current Visit: Yes Status: Acute Assessment and plan: Patient is a 57 year old male who presents with urethral stricture. Urine output is sufficient and clear with condom catheter. May schedule outpatient cystoscopy to evaluate for stricture and continue weekly catheterization to maintain urethral patency. Qualifiers: Urethral stricture type: unspecified stricture type Qualified Code(s): N35.9 - Urethral stricture, unspecified Progress Note Subjective: no new complaints Narrative: Patient seen and examined sitting upright in chair eating breakfast. Patient is non-verbal and unable to ask pointed questions. Nursing staff reports adequate urine output. Objective Initial Vital Signs Temp Pulse Resp BP Pulse Ox 97.4 F L 72 17 94/73 97 07/05/18 00:22 07/05/18 00:22 07/05/18 00:22 07/05/18 00:22 07/05/18 00:22 - General physical appearance Present: no distress, no pain - Respiratory Present: normal expansion, normal respiratory effort - Abdomen Present: soft, non tender - Integumentary Present: no rash, no abnormal pigmentation - Musculoskeletal Present: normal posture - Psychiatric Absent: oriented to time, oriented to person, oriented to place, speech is normal, memory intact - Labs 07/06/18 04:23 07/06/18 04:23 Diabetes panel 07/06/18 Range/Units 04:23 Sodium 139 (136-145) mEq/L Potassium 4.1 (3.5-5.1) mEq/L Chloride 109 H (98-107) mEq/L Carbon Dioxide 24 (23-29) mEq/L BUN 21 H (6-20) mg/dL Creatinine 1.27 (0.70-1.30) mg/dL Glucose 90 (70-105) mg/dL Calcium 8.1 L (8.6-10.3) mg/dL Calcium panel 07/06/18 Range/Units 04:23 Calcium 8.1 L (8.6-10.3) mg/dL Pituitary panel 07/06/18 Range/Units 04:23 Sodium 139 (136-145) mEq/L Potassium 4.1 (3.5-5.1) mEq/L Chloride 109 H (98-107) mEq/L Carbon Dioxide 24 (23-29) mEq/L BUN 21 H (6-20) mg/dL Creatinine 1.27 (0.70-1.30) mg/dL Glucose 90 (70-105) mg/dL Calcium 8.1 L (8.6-10.3) mg/dL Adrenal panel 07/06/18 Range/Units 04:23 Sodium 139 (136-145) mEq/L Potassium 4.1 (3.5-5.1) mEq/L Chloride 109 H (98-107) mEq/L Carbon Dioxide 24 (23-29) mEq/L BUN 21 H (6-20) mg/dL Creatinine 1.27 (0.70-1.30) mg/dL Glucose 90 (70-105) mg/dL Calcium 8.1 L (8.6-10.3) mg/dL Consult Discharge Plan - Plan Referrals: Arnaud Nixon DO [Primary Care Provider] -
[2018-07-06] MEDS: Cholecalciferol (D-3) 1,000 UNIT TABLET PO SCH (10:50)
[2018-07-06] MEDS: Cyanocobalamin (B-12) 1,000 MCG TABLET PO SCH (10:51)
[2018-07-06] MEDS: Baclofen 10 MG TABLET PO SCH ×2 (10:51→21:42)
[2018-07-06] MEDS: Ascorbic Acid 500 MG TABLET PO SCH (10:51)
[2018-07-06] MEDS: Psyllium 1 PACKET POWD.PACK PO SCH (10:52)
[2018-07-06] MEDS: Piperacillin/Tazobactam 3.375 GM in 0.9 % Sodium Chloride Mini Bag 100 ML IVPB SCH ×2 (10:52→17:50)
[2018-07-06] MEDS: Loratadine 10 MG TABLET PO SCH (12:33)
[2018-07-06] MEDS: ARIPiprazole 5 MG TABLET PO SCH (14:56)
--- NOTE | 2018-07-06 15:02 | Infectious Disease Progress No ---
Date of Encounter: 07/06/18 Time of Encounter: 10:50 - Assessment and Plan (1) Sepsis Current Visit: Yes Status: Resolved The patient had two SIRS criteria on admission. Likely secondary to UTI vs. PNA. Improved. Blood cultures drawn 07/05/18 are pending x 2 sets. Qualifiers: Sepsis type: sepsis due to unspecified organism Qualified Code(s): A41.9 - Sepsis, unspecified organism (2) UTI (urinary tract infection) Current Visit: Yes Status: Acute Likely secondary to straight-catheterization. Causative organism: Unclear. Previously, urine cultures have been positive for K. pneumoniae (03/30/18, 03/07/18, 01/17/18, and 11/08/17), Citrobacter (07/14/17, 04/01, 10/2016, and 08/26/16), and M. morgannii (2014). All of these bacteria have been susceptible to Zosyn. Urinalysis positive for pyruia. Culture is pending. Continue Zosyn 3.375 grams IV Q8H. Duration of treatment depends on the clinical picture. Monitor renal function and dose-adjust antibiotics. Await cultures. De-escalate if/when able. Qualifiers: Urinary tract infection type: catheter-associated UTI Qualified Code(s): T83.510A - Infection and inflammatory reaction due to cystostomy catheter, initial encounter; N39.0 - Urinary tract infection, site not specified (3) Pneumonia Current Visit: Yes Status: Suspected Possible pneumonia noted on CXR. Causative organism unclear. High index of suspicion for aspiration. Check S. pneumo and Legionella UAT. I spoke with [facility] and they will run it off the specimen they have down there. RIP negative. Status post MBS this morning. Await results. Repeat CXR in a couple of days. Continue Zosyn as above for now. Duration of treatment depends on the clinical picture. Monitor renal function and dose-adjust antibiotics. Qualifiers: Pneumonia type: due to unspecified organism Laterality: unspecified laterality Lung location: unspecified part of lung Qualified Code(s): J18.9 - Pneumonia, unspecified organism (4) MELISSA (acute kidney injury) Current Visit: Yes Status: Resolved Likely secondary to sepsis. Resolved. (5) Urethral stricture Current Visit: Yes Status: Acute Urology consulted. Qualifiers: Urethral stricture type: unspecified stricture type Qualified Code(s): N35.9 - Urethral stricture, unspecified - Subjective Interval history: Patient seen and examined. No acute events noted overnight. Patient sitting up in the bedside chair with nursing at bedside. Patient states overall he feels well. Denies pain, shortness of breath, nausea, or vomiting. Per nursing, patient had MBS this morning. Awaiting results. Infect Dis PN-Objective Data - Labs CBC & Chem 7: 07/07/18 04:10 07/07/18 04:10 Labs: Laboratory Results - last 24 hr 07/05/18 07/05/18 07/05/18 18:57 18:57 19:08 WBC RBC Hgb Hct MCV MCH MCHC RDW Plt Count MPV Immature Gran % Seg Neutrophils % Lymphocytes % Monocytes % Eosinophils % Basophils % Neutrophils # Lymphocytes # Monocytes # Eosinophils # Basophils # Sodium Potassium Chloride Carbon Dioxide BUN Creatinine Est GFR ( Amer) Est GFR (Non-Af Amer) BUN/Creatinine Ratio Glucose Calculated Osmolality Calcium Urine Color Yellow Urine Clarity Cloudy A Urine pH 6.0 Ur Specific [place] 1.010 Urine Protein 30 H Urine Glucose (UA) Normal Urine Ketones Negative Urine Blood Large H Urine Nitrite Negative Urine Bilirubin Negative Urine Urobilinogen Normal Ur Leukocyte Esterase Large H Urine Microscopic RBC 5-15 H Ur Squamous Epith Cells Moderate H Urine Bacteria None Seen Hyaline Casts None Seen Ur Culture Indicated? YES A Nasal Screen MRSA (PCR) Positive A Chlamy pneumoniae PCR Not Detected Adenovirus (PCR) Not Detected B. pertussis DNA (PCR) Not Detected B.parapertussis DNA PCR Not Detected Coronavirus OC43 (PCR) Not Detected Coronavirus HKU1 (PCR) Not Detected Coronavirus 229E (PCR) Not Detected Coronavirus NL63 (PCR) Not Detected Human Metapneumovir PCR Not Detected Influenza A (H1) PCR Not Detected Influ A (H1N1/09) PCR Not Detected Influenza A (H3) PCR Not Detected Influenza A Untype (PCR) Not Detected Influenza Type B (PCR) Not Detected M.pneumoniae DNA (PCR) Not Detected Parainfluenza 1 (PCR) Not Detected Parainfluenza 2 (PCR) Not Detected Parainfluenza 3 (PCR) Not Detected Parainfluenza 4 (PCR) Not Detected RSV (PCR) Not Detected Entero/Rhino (PCR) Not Detected 07/06/18 07/06/18 04:23 04:23 WBC 6.2 D RBC 3.29 L Hgb 11.3 L Hct 32.6 L MCV 99.1 MCH 34.3 H MCHC 34.7 RDW 13.0 Plt Count 157 MPV 9.6 Immature Gran % 0.2 Seg Neutrophils % 59.9 Lymphocytes % 25.3 Monocytes % 11.5 Eosinophils % 2.6 Basophils % 0.5 Neutrophils # 3.7 Lymphocytes # 1.6 Monocytes # 0.7 Eosinophils # 0.2 Basophils # 0.0 Sodium 139 Potassium 4.1 Chloride 109 H Carbon Dioxide 24 BUN 21 H Creatinine 1.27 Est GFR ( Amer) > 60 Est GFR (Non-Af Amer) 58 L BUN/Creatinine Ratio 17 Glucose 90 Calculated Osmolality 291 Calcium 8.1 L Urine Color Urine Clarity Urine pH Ur Specific [place] Urine Protein Urine Glucose (UA) Urine Ketones Urine Blood Urine Nitrite Urine Bilirubin Urine Urobilinogen Ur Leukocyte Esterase Urine Microscopic RBC Ur Squamous Epith Cells Urine Bacteria Hyaline Casts Ur Culture Indicated? Nasal Screen MRSA (PCR) Chlamy pneumoniae PCR Adenovirus (PCR) B. pertussis DNA (PCR) B.parapertussis DNA PCR Coronavirus OC43 (PCR) Coronavirus HKU1 (PCR) Coronavirus 229E (PCR) Coronavirus NL63 (PCR) Human Metapneumovir PCR Influenza A (H1) PCR Influ A (H1N1/09) PCR Influenza A (H3) PCR Influenza A Untype (PCR) Influenza Type B (PCR) M.pneumoniae DNA (PCR) Parainfluenza 1 (PCR) Parainfluenza 2 (PCR) Parainfluenza 3 (PCR) Parainfluenza 4 (PCR) RSV (PCR) Entero/Rhino (PCR) Cultures: Cultures 07/05/18 04:53 Blood Culture - Preliminary Peripheral Venipuncture Culture is incubating and being continuously monitored for growth. Final report to follow. 07/05/18 04:38 Blood Culture - Preliminary Peripheral Venipuncture Culture is incubating and being continuously monitored for growth. Final report to follow. Serology 07/05/18 07/05/18 07/05/18 Range/Units 19:08 18:57 18:57 Urine Color Yellow (Yellow) Urine Clarity Cloudy A (Clear) Urine pH 6.0 (5.0-8.0) pH Units Ur Specific [place] 1.010 (1.010-1.025) Urine Protein 30 H (Neg-Trace) mg/dL Urine Glucose (UA) Normal (Normal) mg/dL Urine Ketones Negative (Negative) mg/dL Urine Blood Large H (Negative) Urine Nitrite Negative (Negative) Urine Bilirubin Negative (Negative) Urine Urobilinogen Normal (Normal) mg/dL Ur Leukocyte Esterase Large H (Negative) Urine Microscopic RBC 5-15 H (0-3) per hpf Ur Squamous Epith Cells Moderate H (None-Few) per lpf Urine Bacteria None Seen (None-Few) per hpf Hyaline Casts None Seen (None-Few) per lpf Ur Culture Indicated? YES A (NO) Nasal Screen MRSA (PCR) Positive A (Negative) Chlamy pneumoniae PCR Not Detected (Not Detect) Adenovirus (PCR) Not Detected (Not Detect) B. pertussis DNA (PCR) Not Detected (Not Detect) B.parapertussis DNA PCR Not Detected (Not Detect) Coronavirus OC43 (PCR) Not Detected (Not Detect) Coronavirus HKU1 (PCR) Not Detected (Not Detect) Coronavirus 229E (PCR) Not Detected (Not Detect) Coronavirus NL63 (PCR) Not Detected (Not Detect) Human Metapneumovir PCR Not Detected (Not Detect) Influenza A (H1) PCR Not Detected (Not Detect) Influ A (H1N1/09) PCR Not Detected (Not Detect) Influenza A (H3) PCR Not Detected (Not Detect) Influenza A Untype (PCR) Not Detected (Not Detect) Influenza Type B (PCR) Not Detected (Not Detect) M.pneumoniae DNA (PCR) Not Detected (Not Detect) Parainfluenza 1 (PCR) Not Detected (Not Detect) Parainfluenza 2 (PCR) Not Detected (Not Detect) Parainfluenza 3 (PCR) Not Detected (Not Detect) Parainfluenza 4 (PCR) Not Detected (Not Detect) RSV (PCR) Not Detected (Not Detect) Entero/Rhino (PCR) Not Detected (Not Detect) - Impressions Impressions Videofluoroscopic Swallow 07/06/18 08:30 IMPRESSION: Impaired swallowing with multiple episodes of deep penetration. Please see separate speech pathology report for full discussion of findings and recommendations. D/ / Darlene Puente MD / Darlene Puente MD Interpreting Provider: Darlene Puente MD Exam - Constitutional Vitals: Temp Pulse Resp BP Pulse Ox 98.2 F 74 15 127/83 96 07/06/18 12:00 07/06/18 12:00 07/06/18 12:00 07/06/18 12:00 07/06/18 12:00 General appearance: cooperative, no acute distress, obese - Head Head exam: Present: atraumatic, normal inspection, normocephalic - Eye Eye exam: Present: EOMI, normal appearance, PERRL Pupils: Present: normal accommodation - ENT ENT exam: Present: mucous membranes moist - Neck Neck exam: Present: normal inspection - Respiratory Respiratory exam: Present: CTAB. Absent: rales, respiratory distress, rhonchi, wheezes - Cardiovascular Cardiovascular exam: Present: RRR, +S1, +S2 - GI/Abdominal GI/Abdominal exam: Present: normal bowel sounds, soft. Absent: distended, tenderness Additional comments: Sneed catheter noted to be draining clear yellow urine. - Extremities Exam Extremities exam: Present: normal inspection. Absent: joint swelling, pedal edema, tenderness - Neurological Exam Neurological exam: Present: alert, no focal deficits. Absent: oriented X3 ( Oriented to person only.) - Psychiatric Psychiatric exam: Present: normal affect, normal mood - Skin Skin exam: Present: dry, intact, normal color, warm Consult Discharge Plan - Plan Referrals: Arnaud Nixon DO [Primary Care Provider] - 07/12/18 1:30 pm - Attending Attestation I examined this patient and my medical decision-making was reviewed with the Resident Physician. I agree with the documented findings, disposition and treatment plan as described except to the extent set forth below.
--- NOTE | 2018-07-06 17:59 | Internal Med Progress Note ---
<Brady Gustafson - Last Filed: 07/06/18 17:57> Hospitalist Progress Note - Encounter Date of Encounter: 07/06/18 Time of Encounter: 13:00 - Subjective Interval History: Patient was admitted for UTI and AMS Patient in no acute distress, no acute events overnight Patient complained of continued abdominal pain, no other acute complaints - Exam Vitals: Temp Pulse Resp BP Pulse Ox 98.1 F 75 15 98/74 96 07/06/18 16:00 07/06/18 16:00 07/06/18 16:00 07/06/18 16:00 07/06/18 16:00 Exam: No acute distress, alert and oriented to person and situation, he is unable to answer complicated questions Heart in regular rate and rhythm without murmur or gallop Lungs exhibit scattered wheeze, no rales or rhonchi Abdomen soft and mildly tender in suprapubic region, no organomegaly, bowel sounds present and normal Bilateral lower extremities nonedematous or erythematous, left lower extremity not tender to palpation posteriorly Skin warm and dry - Assessment and Plan (1) Sepsis Current Visit: Yes Status: Acute Assessment and Plan: Patient septic secondary to white count and source at admission, no longer has white count, hemodynamically stable, improving Patient on day 2 of Zosyn Plan ID consult for recommendations on antibiotic coverage as patient has history of recurrent complicated UTI Continue Zosyn for the time being Maintenance IVF (2) UTI (urinary tract infection) Current Visit: Yes Status: Acute Assessment and Plan: Patient presented with UTI Patient does make urine but is straight cast weekly secondary to urethral stricture He does still complain of abdominal pain Cultures have not revealed growth yet Plan as seen above (3) Urethral stricture Current Visit: Yes Status: Acute Assessment and Plan: Urology consulted and assessed, considering outpatient cystoscopy (4) DVT prophylaxis Current Visit: Yes Status: Acute Assessment and Plan: Heparin 5000 units subcutaneous every 8 hours (5) MELISSA (acute kidney injury) Current Visit: Yes Status: Resolved Assessment and Plan: Elevated creatinine on admission, 1.27 today, baseline appears to be 1 based on previous admissions Plan We will continue maintenance IV fluids Continue to monitor AM labs Avoid nephrotoxins and renally dose medications (6) Pneumonia Current Visit: Yes Status: Suspected Assessment and Plan: Patient was admitted from [facility] who had concern for pneumonia Chest x-ray revealed bilateral lower lobe infiltrates that could represent atelectasis or pneumonia Patient is asymptomatic but does have mild physical exam findings Plan Continue Zosyn Defer to infectious disease specialists for alteration of antimicrobial therapy Continue to monitor for worsening respiratory function or exam findings - Time Spent with Patient Total time spent is greater than 50% in coordination of care (as documented) at patient's floor/unit and/or counseling patient: Internal Medicine: Result - Labs CBC & Chem 7: 07/06/18 04:23 07/06/18 04:23 Labs: Short CBC 07/06/18 Range/Units 04:23 WBC 6.2 D (4.3-11.1) K/mcL Hgb 11.3 L (12.9-16.9) g/dL Hct 32.6 L (37.5-50.1) % Plt Count 157 (140-400) K/mcL Neutrophils # 3.7 (1.6-8.9) K/mcL BMP 07/06/18 04:23 Sodium 139 Potassium 4.1 Chloride 109 H Carbon Dioxide 24 BUN 21 H Creatinine 1.27 Glucose 90 Calcium 8.1 L Urine 07/05/18 Range/Units 18:57 Urine Color Yellow (Yellow) Urine Clarity Cloudy A (Clear) Urine pH 6.0 (5.0-8.0) pH Units Ur Specific [place] 1.010 (1.010-1.025) Urine Protein 30 H (Neg-Trace) mg/dL Urine Glucose (UA) Normal (Normal) mg/dL - Impressions Impressions Videofluoroscopic Swallow 07/06/18 08:30 IMPRESSION: Impaired swallowing with multiple episodes of deep penetration. Please see separate speech pathology report for full discussion of findings and recommendations. D/ / Darlene Puente MD / Darlene Puente MD Interpreting Provider: Darlene Puente MD Consult Discharge Plan - Plan Referrals: Arnaud Nixon DO [Primary Care Provider] - <Jt Guzman - Last Filed: 07/06/18 18:11> Hospitalist Progress Note - Encounter Date of Encounter: 07/06/18 - Exam Vitals: Temp Pulse Resp BP Pulse Ox 98.1 F 75 15 98/74 96 07/06/18 16:00 07/06/18 16:00 07/06/18 16:00 07/06/18 16:00 07/06/18 16:00 - Assessment and Plan (1) Sepsis Current Visit: Yes Status: Acute (2) UTI (urinary tract infection) Current Visit: Yes Status: Acute (3) Urethral stricture Current Visit: Yes Status: Acute (4) DVT prophylaxis Current Visit: Yes Status: Acute (5) MELISSA (acute kidney injury) Current Visit: Yes Status: Resolved (6) Pneumonia Current Visit: Yes Status: Suspected - Time Spent with Patient Total time spent is greater than 50% in coordination of care (as documented) at patient's floor/unit and/or counseling patient: Internal Medicine: Result - Labs CBC & Chem 7: 07/06/18 04:23 07/06/18 04:23 Labs: Short CBC 07/06/18 Range/Units 04:23 WBC 6.2 D (4.3-11.1) K/mcL Hgb 11.3 L (12.9-16.9) g/dL Hct 32.6 L (37.5-50.1) % Plt Count 157 (140-400) K/mcL Neutrophils # 3.7 (1.6-8.9) K/mcL BMP 07/06/18 04:23 Sodium 139 Potassium 4.1 Chloride 109 H Carbon Dioxide 24 BUN 21 H Creatinine 1.27 Glucose 90 Calcium 8.1 L Urine 07/05/18 Range/Units 18:57 Urine Color Yellow (Yellow) Urine Clarity Cloudy A (Clear) Urine pH 6.0 (5.0-8.0) pH Units Ur Specific [place] 1.010 (1.010-1.025) Urine Protein 30 H (Neg-Trace) mg/dL Urine Glucose (UA) Normal (Normal) mg/dL - Impressions Impressions Videofluoroscopic Swallow 07/06/18 08:30 IMPRESSION: Impaired swallowing with multiple episodes of deep penetration. Please see separate speech pathology report for full discussion of findings and recommendations. D/ / Darlene Puente MD / Darlene Puente MD Interpreting Provider: Darlene Puente MD - Attending Attestation I examined this patient and my medical decision-making was reviewed with the Resident Physician. I agree with the documented findings, disposition and treatment plan as described except to the extent set forth below. <Brady Gustafson - Last Filed: 07/06/18 17:57> (1) Sepsis Qualifiers: Sepsis type: sepsis due to unspecified organism Qualified Code(s): A41.9 - Sepsis, unspecified organism (2) UTI (urinary tract infection) Qualifiers: Urinary tract infection type: catheter-associated UTI Qualified Code(s): T83.511A - Infection and inflammatory reaction due to indwelling urethral catheter, initial encounter; N39.0 - Urinary tract infection, site not specified (3) Urethral stricture Qualifiers: Urethral stricture type: unspecified stricture type Qualified Code(s): N35.9 - Urethral stricture, unspecified (6) Pneumonia Qualifiers: Pneumonia type: due to unspecified organism Laterality: unspecified laterality Lung location: unspecified part of lung Qualified Code(s): J18.9 - Pneumonia, unspecified organism <Jt Guzman - Last Filed: 07/06/18 18:11> (1) Sepsis Qualifiers: Sepsis type: sepsis due to unspecified organism Qualified Code(s): A41.9 - Sepsis, unspecified organism (2) UTI (urinary tract infection) Qualifiers: Urinary tract infection type: catheter-associated UTI Qualified Code(s): T83.511A - Infection and inflammatory reaction due to indwelling urethral catheter, initial encounter; N39.0 - Urinary tract infection, site not specified (3) Urethral stricture Qualifiers: Urethral stricture type: unspecified stricture type Qualified Code(s): N35.9 - Urethral stricture, unspecified (6) Pneumonia Qualifiers: Pneumonia type: due to unspecified organism Laterality: unspecified laterality Lung location: unspecified part of lung Qualified Code(s): J18.9 - Pneumonia, unspecified organism
[2018-07-07] MEDS: Piperacillin/Tazobactam 3.375 GM in 0.9 % Sodium Chloride Mini Bag 100 ML IVPB SCH ×3 (01:41→15:09)
[2018-07-07 04:43] LABS: Basophils % 0.6 %; Eosinophils # 0.2 K/mcL (0.0-0.6); Eosinophils % 4.8 %; Hematocrit 35.7 % (37.5-50.1); Hemoglobin 11.9 g/dL (12.9-16.9); Immature Granulocytes % 0.4 % (0-4); Lymphocytes # 1.6 K/mcL (0.6-4.6); Mean Corpuscular HGB Conc 33.3 g/dL (31.6-35.5); Mean Corpuscular Hemoglobin 32.3 pg (28.0-33.3); Mean Platelet Volume 9.2 fL (9.4-12.4); Monocytes # 0.5 K/mcL (0.0-1.3); Monocytes % 10.7 %; Neutrophils # 2.6 K/mcL (1.6-8.9); Platelet Count 190 K/mcL (140-400); Red Blood Count 3.68 M/mcL (4.19-5.50); Red Cell Distribution Width 13.1 % (11.5-14.5); Segmented Neutrophils % 52.5 %
[2018-07-07] MEDS: *HR* Heparin 5,000 UNIT/ML VIAL SQ SCH ×3 (05:03→21:53)
[2018-07-07 05:04] LABS: BUN/Creatinine Ratio 15 (6-26); Blood Urea Nitrogen 17 mg/dL (6-20); Calcium 8.4 mg/dL (8.6-10.3); Carbon Dioxide 23 mEq/L (23-29); Chloride 109 mEq/L (98-107); Glucose 86 mg/dL (70-105); Osmolality,Calculated 291 (280-300); Sodium 140 mEq/L (136-145); eGFR For Non-African Americans > 60 (> 60)
[2018-07-07] MEDS: ARIPiprazole 10 MG TABLET PO SCH (07:02)
[2018-07-07] MEDS: Ascorbic Acid 500 MG TABLET PO SCH (09:16)
[2018-07-07] MEDS: Baclofen 10 MG TABLET PO SCH ×2 (09:16→21:52)
[2018-07-07] MEDS: Cholecalciferol (D-3) 1,000 UNIT TABLET PO SCH (09:16)
[2018-07-07] MEDS: Loratadine 10 MG TABLET PO SCH (09:16)
[2018-07-07] MEDS: Psyllium 1 PACKET POWD.PACK PO SCH (09:16)
[2018-07-07] MEDS: Cyanocobalamin (B-12) 1,000 MCG TABLET PO SCH (09:16)
--- NOTE | 2018-07-07 09:55 | Internal Med Progress Note ---
<Darrick Kimble - Last Filed: 07/07/18 09:53> Hospitalist Progress Note - Encounter Date of Encounter: 07/07/18 Time of Encounter: 09:53 - Subjective Interval History: 57-year-old male evaluated at bedside. He denies nausea, vomiting, diarrhea, fever, chills, chest pain, shortness of breath. He has no complaints today. - Exam Vitals: Temp Pulse Resp BP Pulse Ox 98 F 73 17 142/83 97 07/07/18 07:37 07/07/18 07:37 07/07/18 07:37 07/07/18 07:37 07/07/18 07:37 Exam: Gen.: No acute distress, can answer some simple questions. CV: RRR, no murmurs, reps, gallops. Lungs: clear chat auscultation bilaterally abdomen: soft, mildly distended, nontender, bowel sounds present. Strep remedies: all 4 extremities shown on pitting edema present. - Assessment and Plan (1) Sepsis Current Visit: Yes Status: Resolved Assessment and Plan: Patient presented as transfer from [facility] with fever as high as 102, leukocytosis, hypotension with BP of 77/54 source of infection likely secondary to UTI, possibly pneumonia (aspiration). Of note, patient has history of chronic UTIs growing Klebsiella, Citrobacter, Morganella Chest x-ray from 07/05 showed by basilar pulmonary opacities: atelectasis versus pneumonia. 07/05 blood cultures X2 no growth to date Legionella and strep pneumoniae antigens negative 07/05 urine culture no growth to date. RIP negative nasal MRSA screen positive patient had MBS that showed mild moderate oropharyngeal dysphasia. Speech recommended. Textures and thin liquids Plan appreciate ID recommendations regarding antibiotic coverage-sepsis currently resolved Continue Zosyn day 3 (2) UTI (urinary tract infection) Current Visit: Yes Status: Acute Assessment and Plan: Plan as above (3) MELISSA (acute kidney injury) Current Visit: Yes Status: Resolved Assessment and Plan: MELISSA likely secondary to sepsis. Currently resolved. Continue to monitor. (4) Pneumonia Current Visit: Yes Status: Suspected Assessment and Plan: Plan as #1 above (5) Urethral stricture Current Visit: Yes Status: Acute Assessment and Plan: History of urethral shook sure requiring intermittent straight catheterization. Plan: appreciate urology recommendations. Per urology, plan is to schedule outpatient cystoscopy to evaluate for stricture and continue weekly catheterization to maintain urethral patency. (6) DVT prophylaxis Current Visit: Yes Status: Acute Assessment and Plan: Heparin SQ DVT Prophylaxis: Heparin SQ - Time Spent with Patient Total time spent is greater than 50% in coordination of care (as documented) at patient's floor/unit and/or counseling patient: Internal Medicine: Result - Labs CBC & Chem 7: 07/07/18 04:10 07/07/18 04:10 Labs: Short CBC 07/07/18 Range/Units 04:10 WBC 5.0 (4.3-11.1) K/mcL Hgb 11.9 L (12.9-16.9) g/dL Hct 35.7 L (37.5-50.1) % Plt Count 190 (140-400) K/mcL Neutrophils # 2.6 (1.6-8.9) K/mcL BMP 07/07/18 04:10 Sodium 140 Potassium 4.0 Chloride 109 H Carbon Dioxide 23 BUN 17 Creatinine 1.11 Glucose 86 Calcium 8.4 L - Impressions Impressions Videofluoroscopic Swallow 07/06/18 08:30 IMPRESSION: Impaired swallowing with multiple episodes of deep penetration. Please see separate speech pathology report for full discussion of findings and recommendations. D/ / Darlene Puente MD / Darlene Puente MD Interpreting Provider: Darlene Puente MD Consult Discharge Plan - Plan Referrals: Arnaud Nixon DO [Primary Care Provider] - 07/12/18 1:30 pm <Jt Guzman - Last Filed: 07/07/18 15:10> Hospitalist Progress Note - Encounter Date of Encounter: 07/07/18 - Exam Vitals: Temp Pulse Resp BP Pulse Ox 97.7 F 66 18 138/72 95 07/07/18 12:02 07/07/18 12:02 07/07/18 12:02 07/07/18 12:02 07/07/18 12:02 - Assessment and Plan (1) Sepsis Current Visit: Yes Status: Resolved (2) UTI (urinary tract infection) Current Visit: Yes Status: Ruled-out (3) Urethral stricture Current Visit: Yes Status: Acute (4) MELISSA (acute kidney injury) Current Visit: Yes Status: Resolved (5) Pneumonia Current Visit: Yes Status: Suspected (6) DVT prophylaxis Current Visit: Yes Status: Acute - Time Spent with Patient Total time spent is greater than 50% in coordination of care (as documented) at patient's floor/unit and/or counseling patient: Internal Medicine: Result - Labs CBC & Chem 7: 07/07/18 04:10 07/07/18 04:10 Labs: Short CBC 07/07/18 Range/Units 04:10 WBC 5.0 (4.3-11.1) K/mcL Hgb 11.9 L (12.9-16.9) g/dL Hct 35.7 L (37.5-50.1) % Plt Count 190 (140-400) K/mcL Neutrophils # 2.6 (1.6-8.9) K/mcL BMP 07/07/18 04:10 Sodium 140 Potassium 4.0 Chloride 109 H Carbon Dioxide 23 BUN 17 Creatinine 1.11 Glucose 86 Calcium 8.4 L - Impressions Impressions Chest X-Ray 07/07/18 11:06 IMPRESSION: Persistent bibasilar infiltrates with a possible new left parahilar infiltrate. Findings suggest a multi lobar pneumonia D/ / Selvin Barry MD / Selvin Barry MD Interpreting Provider: Selvin Barry MD - Attending Attestation I examined this patient and my medical decision-making was reviewed with the Resident Physician. I agree with the documented findings, disposition and treatment plan as described except to the extent set forth below. <Lolita Kimbleia - Last Filed: 07/07/18 09:53> (1) Sepsis Qualifiers: Sepsis type: sepsis due to unspecified organism Qualified Code(s): A41.9 - Sepsis, unspecified organism (2) UTI (urinary tract infection) Qualifiers: Urinary tract infection type: catheter-associated UTI Qualified Code(s): T83.511A - Infection and inflammatory reaction due to indwelling urethral catheter, initial encounter; N39.0 - Urinary tract infection, site not specified (4) Pneumonia Qualifiers: Pneumonia type: due to unspecified organism Laterality: unspecified laterality Lung location: unspecified part of lung Qualified Code(s): J18.9 - Pneumonia, unspecified organism (5) Urethral stricture Qualifiers: Urethral stricture type: unspecified stricture type Qualified Code(s): N35.9 - Urethral stricture, unspecified <Jt Guzman - Last Filed: 07/07/18 15:10> (1) Sepsis Qualifiers: Sepsis type: sepsis due to unspecified organism Qualified Code(s): A41.9 - Sepsis, unspecified organism (2) UTI (urinary tract infection) Qualifiers: Urinary tract infection type: catheter-associated UTI Indwelling urinary catheter type: unspecified Encounter type: initial encounter Qualified Code(s) : T83.511A - Infection and inflammatory reaction due to indwelling urethral catheter, initial encounter; N39.0 - Urinary tract infection, site not specified (3) Urethral stricture Qualifiers: Urethral stricture type: unspecified stricture type Qualified Code(s): N35.9 - Urethral stricture, unspecified (5) Pneumonia Qualifiers: Pneumonia type: due to unspecified organism Laterality: unspecified laterality Lung location: unspecified part of lung Qualified Code(s): J18.9 - Pneumonia, unspecified organism
--- NOTE | 2018-07-07 11:09 | Infectious Disease Progress No ---
Date of Encounter: 07/07/18 Time of Encounter: 10:40 - Assessment and Plan (1) Sepsis Current Visit: Yes Status: Resolved The patient had two SIRS criteria on admission. Likely secondary to UTI vs. PNA. Improved. Blood cultures drawn 07/05/18 are NGTD x 2 sets. Qualifiers: Sepsis type: sepsis due to unspecified organism Qualified Code(s): A41.9 - Sepsis, unspecified organism (2) UTI (urinary tract infection) Current Visit: Yes Status: Ruled-out Likely secondary to straight-catheterization. Causative organism: Unclear. Previously, urine cultures have been positive for K. pneumoniae (03/30/18, 03/07/18, 01/17/18, and 11/08/17), Citrobacter (07/14/17, 04/01, 10/2016, and 08/26/16), and M. morgannii (2014). All of these bacteria have been susceptible to Zosyn. Urinalysis positive for pyruia. Culture is negative. Qualifiers: Urinary tract infection type: catheter-associated UTI Indwelling urinary catheter type: unspecified Encounter type: initial encounter Qualified Code( s): T83.511A - Infection and inflammatory reaction due to indwelling urethral catheter, initial encounter; N39.0 - Urinary tract infection, site not specified (3) Pneumonia Current Visit: Yes Status: Suspected Possible pneumonia noted on CXR. Causative organism unclear. High index of suspicion for aspiration. Check S. pneumo and Legionella UAT. --> negative. RIP negative. Status post MBS this morning that showed aspiration. Repeat CXR now. Continue Zosyn as above for now. High index of suspicion that the patient's symptoms were related to pneumonia rather than UTI. The patient has improved. Can likely switch to PO Augmentin when ready for discharge. Duration of treatment depends on the clinical picture. Monitor renal function and dose-adjust antibiotics. Qualifiers: Pneumonia type: due to unspecified organism Laterality: unspecified laterality Lung location: unspecified part of lung Qualified Code(s): J18.9 - Pneumonia, unspecified organism (4) MELISSA (acute kidney injury) Current Visit: Yes Status: Resolved Likely secondary to sepsis. Resolved. (5) Urethral stricture Current Visit: Yes Status: Acute Urology consulted. Qualifiers: Urethral stricture type: unspecified stricture type Qualified Code(s): N35.9 - Urethral stricture, unspecified - Subjective Interval history: Patient seen and examined. No acute events noted overnight. Patient sitting up in the bed. Denies chest pain, shortness of breath, or cough. Denies nausea, vomiting, or diarrhea. Reports last BM was yesterday. Sneed catheter remains patient. Denies abdominal pain or appetite changes. Infect Dis PN-Objective Data - Labs CBC & Chem 7: 07/07/18 04:10 07/07/18 04:10 Labs: Laboratory Results - last 24 hr 07/07/18 07/07/18 04:10 04:10 WBC 5.0 RBC 3.68 L Hgb 11.9 L Hct 35.7 L MCV 97.0 MCH 32.3 MCHC 33.3 RDW 13.1 Plt Count 190 MPV 9.2 L Immature Gran % 0.4 Seg Neutrophils % 52.5 Lymphocytes % 31.0 Monocytes % 10.7 Eosinophils % 4.8 Basophils % 0.6 Neutrophils # 2.6 Lymphocytes # 1.6 Monocytes # 0.5 Eosinophils # 0.2 Basophils # 0.0 Sodium 140 Potassium 4.0 Chloride 109 H Carbon Dioxide 23 BUN 17 Creatinine 1.11 Est GFR ( Amer) > 60 Est GFR (Non-Af Amer) > 60 BUN/Creatinine Ratio 15 Glucose 86 Calculated Osmolality 291 Calcium 8.4 L Cultures: Cultures 07/05/18 18:57 Urine Culture - Preliminary Urine,Clean Catch No significant growth. 07/05/18 18:57 Legionella Antigen - Final Urine,Clean Catch Streptococcus pneumoniae Antigen (M - Final 07/05/18 04:53 Blood Culture - Preliminary Peripheral Venipuncture Culture is incubating and being continuously monitored for growth. Final report to follow. 07/05/18 04:38 Blood Culture - Preliminary Peripheral Venipuncture Culture is incubating and being continuously monitored for growth. Final report to follow. Serology 07/05/18 07/05/18 07/05/18 Range/Units 19:08 18:57 18:57 Urine Color Yellow (Yellow) Urine Clarity Cloudy A (Clear) Urine pH 6.0 (5.0-8.0) pH Units Ur Specific [place] 1.010 (1.010-1.025) Urine Protein 30 H (Neg-Trace) mg/dL Urine Glucose (UA) Normal (Normal) mg/dL Urine Ketones Negative (Negative) mg/dL Urine Blood Large H (Negative) Urine Nitrite Negative (Negative) Urine Bilirubin Negative (Negative) Urine Urobilinogen Normal (Normal) mg/dL Ur Leukocyte Esterase Large H (Negative) Urine Microscopic RBC 5-15 H (0-3) per hpf Ur Squamous Epith Cells Moderate H (None-Few) per lpf Urine Bacteria None Seen (None-Few) per hpf Hyaline Casts None Seen (None-Few) per lpf Ur Culture Indicated? YES A (NO) Nasal Screen MRSA (PCR) Positive A (Negative) Chlamy pneumoniae PCR Not Detected (Not Detect) Adenovirus (PCR) Not Detected (Not Detect) B. pertussis DNA (PCR) Not Detected (Not Detect) B.parapertussis DNA PCR Not Detected (Not Detect) Coronavirus OC43 (PCR) Not Detected (Not Detect) Coronavirus HKU1 (PCR) Not Detected (Not Detect) Coronavirus 229E (PCR) Not Detected (Not Detect) Coronavirus NL63 (PCR) Not Detected (Not Detect) Human Metapneumovir PCR Not Detected (Not Detect) Influenza A (H1) PCR Not Detected (Not Detect) Influ A (H1N1/09) PCR Not Detected (Not Detect) Influenza A (H3) PCR Not Detected (Not Detect) Influenza A Untype (PCR) Not Detected (Not Detect) Influenza Type B (PCR) Not Detected (Not Detect) M.pneumoniae DNA (PCR) Not Detected (Not Detect) Parainfluenza 1 (PCR) Not Detected (Not Detect) Parainfluenza 2 (PCR) Not Detected (Not Detect) Parainfluenza 3 (PCR) Not Detected (Not Detect) Parainfluenza 4 (PCR) Not Detected (Not Detect) RSV (PCR) Not Detected (Not Detect) Entero/Rhino (PCR) Not Detected (Not Detect) Exam - Constitutional Vitals: Temp Pulse Resp BP Pulse Ox 98 F 73 17 142/83 97 07/07/18 07:37 07/07/18 07:37 07/07/18 07:37 07/07/18 07:37 07/07/18 07:37 General appearance: cooperative, no acute distress, obese - Head Head exam: Present: atraumatic, normal inspection, normocephalic - Eye Eye exam: Present: EOMI, normal appearance, PERRL Pupils: Present: normal accommodation - ENT ENT exam: Present: mucous membranes moist - Neck Neck exam: Present: normal inspection - Respiratory Respiratory exam: Present: CTAB. Absent: rales, respiratory distress, rhonchi, wheezes - Cardiovascular Cardiovascular exam: Present: RRR, +S1, +S2 - GI/Abdominal GI/Abdominal exam: Present: distended (obese), normal bowel sounds, soft. Absent: tenderness Additional comments: Sneed catheter noted to be draining clear yellow urine. - Extremities Exam Extremities exam: Present: normal inspection. Absent: joint swelling, pedal edema, tenderness - Neurological Exam Neurological exam: Present: alert, no focal deficits. Absent: oriented X3 ( Oriented to person only.) - Psychiatric Psychiatric exam: Present: normal affect, normal mood - Skin Skin exam: Present: dry, intact, normal color, warm Consult Discharge Plan - Plan Referrals: Arnaud Nixon DO [Primary Care Provider] - 07/12/18 1:30 pm - Attending Attestation I examined this patient and my medical decision-making was reviewed with the Resident Physician. I agree with the documented findings, disposition and treatment plan as described except to the extent set forth below.
--- NOTE | 2018-07-07 11:13 | Infectious Disease Progress No ---
Date of Encounter: 07/07/18 Time of Encounter: 11:11 - Assessment and Plan (1) Sepsis Current Visit: Yes Status: Resolved The patient had two SIRS criteria on admission. Likely secondary to UTI vs. PNA. Improved. Blood cultures drawn 07/05/18 are NGTD x 2 sets. Qualifiers: Sepsis type: sepsis due to unspecified organism Qualified Code(s): A41.9 - Sepsis, unspecified organism (2) UTI (urinary tract infection) Current Visit: Yes Status: Ruled-out Likely secondary to straight-catheterization. Causative organism: Unclear. Previously, urine cultures have been positive for K. pneumoniae (03/30/18, 03/07/18, 01/17/18, and 11/08/17), Citrobacter (07/14/17, 04/01, 10/2016, and 08/26/16), and M. morgannii (2014). All of these bacteria have been susceptible to Zosyn. Urinalysis positive for pyruia. Culture is negative. Qualifiers: Urinary tract infection type: catheter-associated UTI Qualified Code(s): T83.510A - Infection and inflammatory reaction due to cystostomy catheter, initial encounter; N39.0 - Urinary tract infection, site not specified (3) Pneumonia Current Visit: Yes Status: Suspected Possible pneumonia noted on CXR. Causative organism unclear. High index of suspicion for aspiration. Check S. pneumo and Legionella UAT. --> negative. RIP negative. Status post MBS this morning that showed aspiration. Repeat CXR now. Continue Zosyn as above for now. High index of suspicion that the patient's symptoms were related to pneumonia rather than UTI. The patient has improved. Can likely switch to PO Augmentin when ready for discharge. Duration of treatment depends on the clinical picture. Monitor renal function and dose-adjust antibiotics. Qualifiers: Pneumonia type: due to unspecified organism Laterality: unspecified laterality Lung location: unspecified part of lung Qualified Code(s): J18.9 - Pneumonia, unspecified organism (4) MELISSA (acute kidney injury) Current Visit: Yes Status: Resolved Likely secondary to sepsis. Resolved. (5) Urethral stricture Current Visit: Yes Status: Acute Urology consulted. Qualifiers: Urethral stricture type: unspecified stricture type Qualified Code(s): N35.9 - Urethral stricture, unspecified - Subjective Interval history: Patient seen and examined. No acute events noted overnight. Patient sitting up in bed. Denies fevers, chills, or rigors. Denies chest pain, shortness of breath , or cough. Denies nausea, vomiting, or diarrhea. Denies abdominal pain or appetite changes. Sneed catheter remains patent. Infect Dis PN-Objective Data - Labs CBC & Chem 7: 07/07/18 04:10 07/07/18 04:10 Labs: Laboratory Results - last 24 hr 07/07/18 07/07/18 04:10 04:10 WBC 5.0 RBC 3.68 L Hgb 11.9 L Hct 35.7 L MCV 97.0 MCH 32.3 MCHC 33.3 RDW 13.1 Plt Count 190 MPV 9.2 L Immature Gran % 0.4 Seg Neutrophils % 52.5 Lymphocytes % 31.0 Monocytes % 10.7 Eosinophils % 4.8 Basophils % 0.6 Neutrophils # 2.6 Lymphocytes # 1.6 Monocytes # 0.5 Eosinophils # 0.2 Basophils # 0.0 Sodium 140 Potassium 4.0 Chloride 109 H Carbon Dioxide 23 BUN 17 Creatinine 1.11 Est GFR ( Amer) > 60 Est GFR (Non-Af Amer) > 60 BUN/Creatinine Ratio 15 Glucose 86 Calculated Osmolality 291 Calcium 8.4 L Cultures: Cultures 07/05/18 18:57 Urine Culture - Preliminary Urine,Clean Catch No significant growth. 07/05/18 18:57 Legionella Antigen - Final Urine,Clean Catch Streptococcus pneumoniae Antigen (M - Final 07/05/18 04:53 Blood Culture - Preliminary Peripheral Venipuncture Culture is incubating and being continuously monitored for growth. Final report to follow. 07/05/18 04:38 Blood Culture - Preliminary Peripheral Venipuncture Culture is incubating and being continuously monitored for growth. Final report to follow. Serology 07/05/18 07/05/18 07/05/18 Range/Units 19:08 18:57 18:57 Urine Color Yellow (Yellow) Urine Clarity Cloudy A (Clear) Urine pH 6.0 (5.0-8.0) pH Units Ur Specific [place] 1.010 (1.010-1.025) Urine Protein 30 H (Neg-Trace) mg/dL Urine Glucose (UA) Normal (Normal) mg/dL Urine Ketones Negative (Negative) mg/dL Urine Blood Large H (Negative) Urine Nitrite Negative (Negative) Urine Bilirubin Negative (Negative) Urine Urobilinogen Normal (Normal) mg/dL Ur Leukocyte Esterase Large H (Negative) Urine Microscopic RBC 5-15 H (0-3) per hpf Ur Squamous Epith Cells Moderate H (None-Few) per lpf Urine Bacteria None Seen (None-Few) per hpf Hyaline Casts None Seen (None-Few) per lpf Ur Culture Indicated? YES A (NO) Nasal Screen MRSA (PCR) Positive A (Negative) Chlamy pneumoniae PCR Not Detected (Not Detect) Adenovirus (PCR) Not Detected (Not Detect) B. pertussis DNA (PCR) Not Detected (Not Detect) B.parapertussis DNA PCR Not Detected (Not Detect) Coronavirus OC43 (PCR) Not Detected (Not Detect) Coronavirus HKU1 (PCR) Not Detected (Not Detect) Coronavirus 229E (PCR) Not Detected (Not Detect) Coronavirus NL63 (PCR) Not Detected (Not Detect) Human Metapneumovir PCR Not Detected (Not Detect) Influenza A (H1) PCR Not Detected (Not Detect) Influ A (H1N1/09) PCR Not Detected (Not Detect) Influenza A (H3) PCR Not Detected (Not Detect) Influenza A Untype (PCR) Not Detected (Not Detect) Influenza Type B (PCR) Not Detected (Not Detect) M.pneumoniae DNA (PCR) Not Detected (Not Detect) Parainfluenza 1 (PCR) Not Detected (Not Detect) Parainfluenza 2 (PCR) Not Detected (Not Detect) Parainfluenza 3 (PCR) Not Detected (Not Detect) Parainfluenza 4 (PCR) Not Detected (Not Detect) RSV (PCR) Not Detected (Not Detect) Entero/Rhino (PCR) Not Detected (Not Detect) Exam - Constitutional Vitals: Temp Pulse Resp BP Pulse Ox 98 F 73 17 142/83 97 07/07/18 07:37 07/07/18 07:37 07/07/18 07:37 07/07/18 07:37 07/07/18 07:37 General appearance: average body habitus, cooperative, no acute distress, thin - Head Head exam: Present: atraumatic, normal inspection, normocephalic - Eye Eye exam: Present: EOMI, normal appearance, PERRL Pupils: Present: normal accommodation - ENT ENT exam: Present: mucous membranes moist - Neck Neck exam: Present: normal inspection - Respiratory Respiratory exam: Present: CTAB. Absent: rales, respiratory distress, rhonchi, wheezes - Cardiovascular Cardiovascular exam: Present: RRR, +S1, +S2 - GI/Abdominal GI/Abdominal exam: Present: normal bowel sounds, soft. Absent: distended, tenderness Additional comments: Colostomy noted to the left abdomen with small amount of liquid brown stool noted in the collection bag. Sneed catheter noted to be draining clear yellow urine. - Extremities Exam Extremities exam: Absent: joint swelling, pedal edema, tenderness - Neurological Exam Neurological exam: Present: alert, oriented X3. Absent: no focal deficits ( Decreased sensation and movement noted to the BLE.) - Psychiatric Psychiatric exam: Present: normal affect, normal mood - Skin Skin exam: Present: dry, intact, normal color, warm Consult Discharge Plan - Plan Referrals: Arnaud Nixon DO [Primary Care Provider] - 07/12/18 1:30 pm
--- NOTE | 2018-07-07 12:34 | Urology Progress Note ---
Date of Encounter: 07/07/18 Time of Encounter: 12:32 - Assessment and Plan (1) UTI (urinary tract infection) Current Visit: Yes Status: Ruled-out Assessment and plan: Patient is a 57-year-old male who presents with history of urinary tract infection. Patient's vital signs are stable and afebrile. Final urine culture was negative for significant growth. The primary team will manage outpatient therapy. Qualifiers: Urinary tract infection type: catheter-associated UTI Indwelling urinary catheter type: unspecified Encounter type: initial encounter Qualified Code( s): T83.511A - Infection and inflammatory reaction due to indwelling urethral catheter, initial encounter; N39.0 - Urinary tract infection, site not specified (2) Urethral stricture Current Visit: Yes Status: Acute Assessment and plan: Patient is a 57 year old male who presents with history of a urethral stricture. Ultimately, the patient may continue with weekly catheterization to maintain stricture patency. Urine flow is not obstructed and output is sufficient. The patient may follow up in our office to discuss urethral dilation as needed. Qualifiers: Urethral stricture type: unspecified stricture type Qualified Code(s): N35.9 - Urethral stricture, unspecified Progress Note Subjective: no new complaints Narrative: Patient seen and examined sitting upright in bed in no apparent distress. Patient is unable to participate in history of physical examination secondary to developmental delay. Objective Initial Vital Signs Temp Pulse Resp BP Pulse Ox 97.4 F L 72 17 94/73 97 07/05/18 00:22 07/05/18 00:22 07/05/18 00:22 07/05/18 00:22 07/05/18 00:22 - General physical appearance Present: well developed, no distress, no pain - Respiratory Present: normal expansion - Abdomen Present: soft, non tender - Integumentary Present: no rash, no abnormal pigmentation - Musculoskeletal Present: normal posture - Psychiatric Absent: oriented to time, oriented to person, oriented to place, speech is normal, memory intact - Labs 07/07/18 04:10 07/07/18 04:10 Diabetes panel 07/07/18 Range/Units 04:10 Sodium 140 (136-145) mEq/L Potassium 4.0 (3.5-5.1) mEq/L Chloride 109 H (98-107) mEq/L Carbon Dioxide 23 (23-29) mEq/L BUN 17 (6-20) mg/dL Creatinine 1.11 (0.70-1.30) mg/dL Glucose 86 (70-105) mg/dL Calcium 8.4 L (8.6-10.3) mg/dL Calcium panel 07/07/18 Range/Units 04:10 Calcium 8.4 L (8.6-10.3) mg/dL Pituitary panel 07/07/18 Range/Units 04:10 Sodium 140 (136-145) mEq/L Potassium 4.0 (3.5-5.1) mEq/L Chloride 109 H (98-107) mEq/L Carbon Dioxide 23 (23-29) mEq/L BUN 17 (6-20) mg/dL Creatinine 1.11 (0.70-1.30) mg/dL Glucose 86 (70-105) mg/dL Calcium 8.4 L (8.6-10.3) mg/dL Adrenal panel 07/07/18 Range/Units 04:10 Sodium 140 (136-145) mEq/L Potassium 4.0 (3.5-5.1) mEq/L Chloride 109 H (98-107) mEq/L Carbon Dioxide 23 (23-29) mEq/L BUN 17 (6-20) mg/dL Creatinine 1.11 (0.70-1.30) mg/dL Glucose 86 (70-105) mg/dL Calcium 8.4 L (8.6-10.3) mg/dL Consult Discharge Plan - Plan Referrals: Arnaud Nixon DO [Primary Care Provider] - 07/12/18 1:30 pm
[2018-07-07] MEDS: ARIPiprazole 5 MG TABLET PO SCH (15:10)
[2018-07-08] MEDS: ARIPiprazole 10 MG TABLET PO SCH (06:03)
[2018-07-08] MEDS: *HR* Heparin 5,000 UNIT/ML VIAL SQ SCH (06:03)
[2018-07-08 06:10] LABS: Basophils % 0.6 %; Eosinophils # 0.2 K/mcL (0.0-0.6); Eosinophils % 4.4 %; Hematocrit 34.6 % (37.5-50.1); Hemoglobin 11.9 g/dL (12.9-16.9); Immature Granulocytes % 1.1 % (0-4); Lymphocytes # 1.7 K/mcL (0.6-4.6); Lymphocytes % 31.5 %; Mean Corpuscular HGB Conc 34.4 g/dL (31.6-35.5); Mean Corpuscular Hemoglobin 32.9 pg (28.0-33.3); Mean Corpuscular Volume 95.6 fL (83.0-100.0); Mean Platelet Volume 9.3 fL (9.4-12.4); Monocytes # 0.4 K/mcL (0.0-1.3); Monocytes % 7.6 %; Platelet Count 226 K/mcL (140-400); Red Blood Count 3.62 M/mcL (4.19-5.50); Red Cell Distribution Width 12.8 % (11.5-14.5); Segmented Neutrophils % 54.8 %
[2018-07-08 06:28] LABS: BUN/Creatinine Ratio 15 (6-26); Blood Urea Nitrogen 15 mg/dL (6-20); Calcium 8.9 mg/dL (8.6-10.3); Carbon Dioxide 22 mEq/L (23-29); Chloride 107 mEq/L (98-107); Glucose 95 mg/dL (70-105); Osmolality,Calculated 287 (280-300); Potassium 3.7 mEq/L (3.5-5.1); Sodium 138 mEq/L (136-145); eGFR For Non-African Americans > 60 (> 60)
[2018-07-08 07:43] VITALS: BP 120/80
[2018-07-08] MEDS: Loratadine 10 MG TABLET PO SCH (09:13)
[2018-07-08] MEDS: Cyanocobalamin (B-12) 1,000 MCG TABLET PO SCH (09:14)
[2018-07-08] MEDS: Ascorbic Acid 500 MG TABLET PO SCH (09:14)
[2018-07-08] MEDS: Baclofen 10 MG TABLET PO SCH (09:14)
[2018-07-08] MEDS: Psyllium 1 PACKET POWD.PACK PO SCH (09:14)
[2018-07-08] MEDS: Cholecalciferol (D-3) 1,000 UNIT TABLET PO SCH (09:14)
--- NOTE | 2018-07-08 11:18 | Discharge Summary ---
<Brady Gustafson Kamala - Last Filed: 07/08/18 11:15> - NOTES TO OUTPATIENT PROVIDER Notes to Outpatient Provider: Mr. Olson was admitted and treated for UTI and pneumonia. He was septic at admission but labs and vitals quickly resolved with antibiotics and supportive care. Infectious disease and urology were involved. Urology will follow the outpatient for evaluation of possible cystoscopy. Infectious disease recommended discharge on Augmentin. Patient will also require outpatient speech therapy follow up. Orders not resulted at time of discharge: Pending orders 07/05/18 04:53 Culture,Blood [BC] AM 0400 Date of Encounter: 07/08/18 Time of Encounter: 11:15 - Discharge Diagnosis (1) Sepsis Priority: Primary Status: Resolved Assessment and Plan: Patient presented as transfer from [facility] with fever as high as 102, leukocytosis, hypotension with BP of 77/54 source of infection likely secondary to UTI, possibly pneumonia (aspiration). Of note, patient has history of chronic UTIs growing Klebsiella, Citrobacter, Morganella Chest x-ray from 07/05 showed by basilar pulmonary opacities: atelectasis versus pneumonia. 07/05 blood cultures X2 no growth to date Legionella and strep pneumoniae antigens negative 07/05 urine culture no growth to date. RIP negative nasal MRSA screen positive patient had MBS that showed mild moderate oropharyngeal dysphasia. Speech recommended textures and thin liquids Plan appreciate ID recommendations regarding antibiotic coverage-sepsis currently resolved Transition from Zosyn day 4 to oral Augmentin for discharge Qualifiers: Sepsis type: sepsis due to unspecified organism Qualified Code(s): A41.9 - Sepsis, unspecified organism (2) UTI (urinary tract infection) Priority: Secondary Status: Ruled-out Assessment and Plan: Plan as above Qualifiers: Urinary tract infection type: catheter-associated UTI Indwelling urinary catheter type: unspecified Encounter type: initial encounter Qualified Code( s): T83.511A - Infection and inflammatory reaction due to indwelling urethral catheter, initial encounter; N39.0 - Urinary tract infection, site not specified (3) Urethral stricture Priority: Secondary Status: Acute Assessment and Plan: History of urethral shook sure requiring intermittent straight catheterization. Plan: appreciate urology recommendations. Per urology, plan is to schedule outpatient cystoscopy to evaluate for stricture and continue weekly catheterization to maintain urethral patency. Qualifiers: Urethral stricture type: unspecified stricture type Qualified Code(s): N35.9 - Urethral stricture, unspecified (4) MELISSA (acute kidney injury) Priority: Secondary Status: Resolved Assessment and Plan: MELISSA likely secondary to sepsis. Currently resolved. Stable for dishcharge (5) Pneumonia Priority: Secondary Status: Suspected Assessment and Plan: Plan as #1 above Qualifiers: Pneumonia type: due to unspecified organism Laterality: unspecified laterality Lung location: unspecified part of lung Qualified Code(s): J18.9 - Pneumonia, unspecified organism (6) DVT prophylaxis Priority: Secondary Status: Acute Assessment and Plan: Heparin SQ during admission Hospital course: Mr. Ovalles is a 57 year old male history of urethral stricture and antibiotic resistant UTI presented to [facility] ED with fever and AMS. He is resident at [facility] where he was less active and had dark urine. Found to have temperature 103F decrease to 100.2 with Tylenol. In [facility] Ed, vitals T 97.9 RR 20 HR 88 and BP 77/54 improved to 107/72. EKG was NSR. WBC 19.9. Scr 1.96. UA showed large leuk esterase and large blood thus diagnosed with UTI and started on vanc and zosyn. Given 2 L NS and 1 L Ringers. Blood and urine culture. He was transferred to [facility] due to urosepsis and he follows with Dr Funez in ID. He requires weekly straight cath for his urethral stricture but can urinate without cath. Patient was treated for sepsis , UTI, MELISSA with antibiotics and supportive care including maintenance IV fluids. Urology and infectious disease were consulted. The patient's labs and vitals quickly resolved and he was no longer septic, however we continue to treat for UTI. The patients urinary symptoms and abdominal pain quickly resolved however he was found to have physical exam findings associated with lower respiratory tract infection. Chest x-ray was suspicious for pneumonia and so he was also treated for that with continued Zosyn. Pneumonia was suspected to be secondary to aspiration and so speech therapy was consulted, who recommended thin liquids. The patient remained hemodynamically stable throughout the admission, his symptoms and labs and physical exam all resolved prior to discharge. He will be discharged home with home health aides and nurses and 7 days of oral Augmentin. Discharge discussed with: nurse - Time Spent with Patient Total time spent providing and/or coordinating discharge services: - Discharge Medications Prescriptions: Amoxicillin/Clavulanate [Augmentin] 875 mg PO BIDWM 7 Days #14 tablet Home Medications: Aripiprazole [Abilify] 5 mg PO 1500 06/27/15 [History] Ferrous Sulfate 325 mg PO BID 06/27/15 [History] Omeprazole [PriLOSEC] 40 mg PO QAM 06/27/15 [History] Ascorbate Calcium [Vitamin C] 500 mg PO DAILY 03/26/16 [History] Baclofen [Lioresal] 10 mg PO BID 03/26/16 [History] Bethanechol Chloride [Urecholine] 25 mg PO TID 03/26/16 [History] Cetirizine HCl [Zyrtec] 10 mg PO DAILY 03/26/16 [History] Citalopram Hydrobromide [Citalopram HBr] 40 mg PO DAILY 03/26/16 [History] Cyanocobalamin (Vitamin B-12) [Vitamin B-12] 100 mcg PO DAILY 03/26/16 [History] Meloxicam [Mobic] 7.5 mg PO DAILY 03/26/16 [History] ARIPiprazole [Abilify] 10 mg PO QAM 07/05/18 [History] Albuterol Sulfate [Ventolin Hfa] 18 gm IH Q4H PRN 07/05/18 [History] Calcium Carbonate/Vitamin D3 [Calcium 600-Vit D3 400 Tablet] 2 tab PO DAILY 10/10 [History] Hydrochlorothiazide [Microzide] 12.5 mg PO DAILY 07/05/18 [History] Amoxicillin/Clavulanate [Augmentin] 875 mg PO BIDWM 7 Days #14 tablet 07/08/18 [ Rx] Allergies/Adverse Reactions: 3 Allergy/AdvReac Type Severity Reaction Status Date / Time cholestyramine Allergy Anaphylaxis Verified 06/27/15 11:07 indomethacin Allergy Anaphylaxis Verified 06/27/15 11:07 Date of admission: 07/05/18 04:13 Primary care physician: Arnaud Nixon DO Consults: 07/05/18 02:16 Consult to Speech Therapy [CONS] Routine Comment: Evaluate, develop and implement POC Reason for Consult: dysphagia Call Completed: No 07/05/18 06:08 Consult to Infectious Diseases [CONS] Routine Consulting Provider: Infectious Disease [place] [facility] Reason for Consult: Sepsis 2/2 UTI, hx antibiotic resistant UTI, clinic patient Time Notified: 06:08 Call Completed: Yes 07/05/18 13:04 Consult to Urology [CONS] Routine Consulting Provider: Urology [facility] Reason for Consult: Frequent UTI in the presence of urethral stricture and weekly catheterization Call Completed: Yes 07/06/18 18:21 Consult to Occupational Therapy [CONS] Routine Comment: Evaluate, develop and implement POC Reason for Consult: Evaluate, develop and implement POC Does patient have active BEDREST order?: No Is patient medically & hemodynamically stable?: Yes Consult to Physical Therapy [CONS] Routine Comment: Evaluate, develop and implement POC Reason for Consult: Disposition planning. Therapy - weakness in bed. Does patient have active BEDREST order?: No Is patient medically & hemodynamically stable?: Yes Discharging clinician: Brady Gustafson - Constitutional Vitals: Temp Pulse Resp BP Pulse Ox 98.3 F 75 16 120/80 94 07/08/18 07:38 07/08/18 07:38 07/08/18 07:38 07/08/18 07:38 07/08/18 07:38 General appearance: Present: cooperative, no acute distress. Absent: answers questions appropriately Exam: Patient in no acute distress, alert and oriented to self and situation Heart in regular rate and rhythm without murmur or gallop Lungs clear to auscultation bilaterally Abdomen soft and nontender with normal bowel sounds present Bilateral lower extremities nonedematous Skin warm and dry - Patient Status Disposition: Home Health Service Functional capacity at discharge: wheelchair bound Overall status at discharge: patient is back to baseline - Discharge Instructions Instructions: Sepsis (DC) Follow Up With: Arnaud Nixon DO [Primary Care Provider] - 07/12/18 1:30 pm - Diet and Activity Activity: resume usual activities as tolerated Diet: advance to your usual diet <Jt Guzman - Last Filed: 07/08/18 15:25> Orders not resulted at time of discharge: Pending orders 07/05/18 04:53 Culture,Blood [BC] AM 0400 Date of Encounter: 07/08/18 - Discharge Diagnosis (1) Sepsis Status: Resolved Qualifiers: Sepsis type: sepsis due to unspecified organism Qualified Code(s): A41.9 - Sepsis, unspecified organism (2) UTI (urinary tract infection) Status: Ruled-out Qualifiers: Urinary tract infection type: catheter-associated UTI Indwelling urinary catheter type: unspecified Encounter type: initial encounter Qualified Code( s): T83.511A - Infection and inflammatory reaction due to indwelling urethral catheter, initial encounter; N39.0 - Urinary tract infection, site not specified (3) Urethral stricture Status: Acute Qualifiers: Urethral stricture type: unspecified stricture type Qualified Code(s): N35.9 - Urethral stricture, unspecified (4) MELISSA (acute kidney injury) Status: Resolved (5) Pneumonia Status: Suspected Qualifiers: Pneumonia type: due to unspecified organism Laterality: unspecified laterality Lung location: unspecified part of lung Qualified Code(s): J18.9 - Pneumonia, unspecified organism (6) DVT prophylaxis Status: Acute Hospital course: Mr. Ovalles is a 57 year old male - Time Spent with Patient Total time spent providing and/or coordinating discharge services: Date of admission: 07/05/18 04:13 Primary care physician: Arnaud Nixon DO Consults: 07/05/18 02:16 Consult to Speech Therapy [CONS] Routine Comment: Evaluate, develop and implement POC Reason for Consult: dysphagia Call Completed: No 07/05/18 06:08 Consult to Infectious Diseases [CONS] Routine Consulting Provider: Infectious Disease [facility] Reason for Consult: Sepsis 2/2 UTI, hx antibiotic resistant UTI, clinic patient Time Notified: 06:08 Call Completed: Yes 07/05/18 13:04 Consult to Urology [CONS] Routine Consulting Provider: Urology [place] [facility] Reason for Consult: Frequent UTI in the presence of urethral stricture and weekly catheterization Call Completed: Yes 07/06/18 18:21 Consult to Occupational Therapy [CONS] Routine Comment: Evaluate, develop and implement POC Reason for Consult: Evaluate, develop and implement POC Does patient have active BEDREST order?: No Is patient medically & hemodynamically stable?: Yes Consult to Physical Therapy [CONS] Routine Comment: Evaluate, develop and implement POC Reason for Consult: Disposition planning. Therapy - weakness in bed. Does patient have active BEDREST order?: No Is patient medically & hemodynamically stable?: Yes - Constitutional Vitals: Temp Pulse Resp BP Pulse Ox 98.3 F 75 16 120/80 94 07/08/18 07:38 07/08/18 07:38 07/08/18 07:38 07/08/18 07:38 07/08/18 07:38 - Attending Attestation I examined this patient and my medical decision-making was reviewed with the Resident Physician. I agree with the documented findings, disposition and treatment plan as described except to the extent set forth below. Addendum entered and electronically signed by Brady Gustafson 07/08/18 11:33 : ezequiel avendaño
--- NOTE | 2018-07-08 11:34 | Physician Discharge Referral ---
Home Health/Hosp Referral Info Transfer to: Home Health Attending Provider: Megan Provider in Charge Post Discharge: PCP - Diagnosis (1) Sepsis Priority: Primary Status: Resolved (2) UTI (urinary tract infection) Priority: Secondary Status: Ruled-out (3) Urethral stricture Priority: Secondary Status: Acute (4) MELISSA (acute kidney injury) Priority: Secondary Status: Resolved (5) Pneumonia Priority: Secondary Status: Suspected (6) DVT prophylaxis Priority: Secondary Status: Acute - Respiratory Orders None Smoking Cessation: Smoking cessation has been advised. For more information, call the [place] Tobacco Quit Line at 0-309-QBBO-NOW. - Diet/Nutrition Diet/Nutrition Orders: Pureed - Activity Activity Orders: Chair - Services Needed Following services are medically necessary services: Nursing, Home Health Aide, Speech Therapy - Transfer Medications Prescriptions: Amoxicillin/Clavulanate [Augmentin] 875 mg PO BIDWM 7 Days #14 tablet Home Medications: Aripiprazole [Abilify] 5 mg PO 1500 06/27/15 [History] Ferrous Sulfate 325 mg PO BID 06/27/15 [History] Omeprazole [PriLOSEC] 40 mg PO QAM 06/27/15 [History] Ascorbate Calcium [Vitamin C] 500 mg PO DAILY 03/26/16 [History] Baclofen [Lioresal] 10 mg PO BID 03/26/16 [History] Bethanechol Chloride [Urecholine] 25 mg PO TID 03/26/16 [History] Cetirizine HCl [Zyrtec] 10 mg PO DAILY 03/26/16 [History] Citalopram Hydrobromide [Citalopram HBr] 40 mg PO DAILY 03/26/16 [History] Cyanocobalamin (Vitamin B-12) [Vitamin B-12] 100 mcg PO DAILY 03/26/16 [History] Meloxicam [Mobic] 7.5 mg PO DAILY 03/26/16 [History] ARIPiprazole [Abilify] 10 mg PO QAM 07/05/18 [History] Albuterol Sulfate [Ventolin Hfa] 18 gm IH Q4H PRN 07/05/18 [History] Calcium Carbonate/Vitamin D3 [Calcium 600-Vit D3 400 Tablet] 2 tab PO DAILY 10/10 [History] Hydrochlorothiazide [Microzide] 12.5 mg PO DAILY 07/05/18 [History] Amoxicillin/Clavulanate [Augmentin] 875 mg PO BIDWM 7 Days #14 tablet 07/08/18 [ Rx] Allergies/Adverse Reactions: 3 Allergy/AdvReac Type Severity Reaction Status Date / Time cholestyramine Allergy Anaphylaxis Verified 06/27/15 11:07 indomethacin Allergy Anaphylaxis Verified 06/27/15 11:07 Certification: Further, I certify that my clinical findings support that this patient is homebound (i.e. absences from home require considerable and taxing effort and are for medical reasons or rastafari services or infrequently or short duration when for other reasons) because: Homebound Reason: Patient requires assistance of a person or device to safely leave home, Altered mental status requiring supervision when leaving home Attestation: My signature below is to certify that this patient is under my care and that I, or nurse practitioner, or a physician's multimedia production assistant working with me, has a face-to -face encounter with this patient.
== END 2018-07-08 14:41 | disposition home health service (06) | DRG 698 ==
LOC: 2NENU → SUATTDRO 07-05 04:13
PROVIDERS: ADMIT Student in an Organized Health Care Education/Training Program; ATTEND Student in an Organized Health Care Education/Training Program

== ENCOUNTER 2019-04-10 23:04 | Observation (INO) ==
--- NOTE | 2019-04-10 02:06 | Internal Med History&Physical ---
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 He is sent here from [facility] where he was taken by his medical record coder initially with a complaint of leg pain however he was found febrile at 102.6F and lactic acid of 2.7. Although he had no leukocytosis, his UA was suggestive of infection he was started on empiric antibiotics, antipyretics and fluids. His lactate then improved to 1.9 and fever subsided. He was transferred here for further care. History gathering is limited as his speech is limited although he answers appropriately sometimes when he can understand. He denies being in pain, having fever or chills. Vitals: Reviewed General: Obese white man lying in bed in no acute distress. Skin: Warm and supple. HEENT: Moist mucous membranes. No conjunctivae pallor. Neck: No lymphadenopathy. No JVD. No carotid bruits. No palpable thyroid. Chest: Normal thoracic expansion. Normal breath sounds. Clear to auscultation. Heart: Normal S1 & S2; rhythmic. No rubs or murmurs. Abdomen: Non-distended, soft and non-tender to palpation. No peritoneal reaction. Extremities: No clubbing, cyanosis or edema. No calf tenderness. Normal distal pulses. Neurological: Awake, alert. Psych: Affect flat. Assessment/Plan 1. Sepsis syndrome: as evidenced by fever and high lactate suspected secondary to UTI. [facility] urine sample showed LE and mild pyuria which could be indicative. Will repeat a urine sample here with culture so we can follow this adequately. He does not appear systemically ill and can likely be discharged kenji n. His prior urine culture microbiology have been rather susceptible to a host of antibiotics so this should not be an inhibiting factor. 2. JARED: On CPAP. 3. Urethral stricture: Straight caths as needed. 4. DVT prophylaxis: Ordered. Past Med Surg Social Fam HX - Past Medical History Medical history: arthritis, CVA, dementia, GERD, seizures Additional medical history: head injury, peg tube placement, MRDD, chronic sinusitis, left sided weakness, Urethrial stricture - straight cathed at home. Psychiatric history: no psych history, depression, PTSD - Past Surgical History Surgical History: hip replacement, tracheostomy Additional surgical history: feeding tube - removed - Social History Smoking Status: Never smoker Smokeless Tobacco Status: No Alcohol use: none Drug use: none Internal Medicine - H&P: Meds Aripiprazole [Abilify] 5 mg PO 1500 06/27/15 [History] Ferrous Sulfate 325 mg PO BID 06/27/15 [History] Omeprazole [PriLOSEC] 40 mg PO QAM 06/27/15 [History] Ascorbate Calcium [Vitamin C] 500 mg PO DAILY 03/26/16 [History] Baclofen [Lioresal] 10 mg PO BID 03/26/16 [History] Bethanechol Chloride [Urecholine] 25 mg PO TID 03/26/16 [History] Cetirizine HCl [Zyrtec] 10 mg PO DAILY 03/26/16 [History] Citalopram Hydrobromide [Citalopram HBr] 40 mg PO DAILY 03/26/16 [History] Cyanocobalamin (Vitamin B-12) [Vitamin B-12] 100 mcg PO DAILY 03/26/16 [History] Meloxicam [Mobic] 7.5 mg PO DAILY 03/26/16 [History] ARIPiprazole [Abilify] 10 mg PO QAM 07/05/18 [History] Albuterol Sulfate [Ventolin Hfa] 18 gm IH Q4H PRN 07/05/18 [History] Calcium Carbonate/Vitamin D3 [Calcium 600-Vit D3 400 Tablet] 2 tab PO DAILY 07/05/18 [History] Hydrochlorothiazide [Microzide] 12.5 mg PO DAILY 07/05/18 [History] Amoxicillin/Clavulanate [Augmentin] 875 mg PO BIDWM 7 Days #14 tablet 07/08/18 [Rx] Allergy/AdvReac Type Severity Reaction Status Date / Time cholestyramine Allergy Anaphylaxis Verified 06/27/15 11:07 indomethacin Allergy Anaphylaxis Verified 06/27/15 11:07 All Systems PM: A 10-system review of systems was performed and is negative for pertinent findings except as documented above in the HPI. Family history reviewed and found non-contributory. - Constitutional Vitals: Temp Pulse Resp BP Pulse Ox 98.7 F 94 24 92/59 97 04/10/19 01:49 04/10/19 01:49 04/10/19 01:49 04/10/19 01:49 04/10/19 01:49 Exam: . - Time Spent With Patient Total time spent is greater than 50% in coordination of care (as documented) at patient's floor/unit and/or counseling patient: Greater than 35 minutes
[2019-04-10 03:35] LABS: Basophils % 0.1 %; Hemoglobin 11.5 g/dL (12.9-16.9); Immature Granulocytes % 0.8 % (0-4); Lymphocytes # 0.1 K/mcL (0.6-4.6); Lymphocytes % 0.9 %; Mean Corpuscular HGB Conc 33.8 g/dL (31.6-35.5); Mean Corpuscular Hemoglobin 32.8 pg (28.0-33.3); Mean Corpuscular Volume 96.9 fL (83.0-100.0); Mean Platelet Volume 9.4 fL (9.4-12.4); Monocytes # 0.2 K/mcL (0.0-1.3); Monocytes % 1.2 %; Platelet Count 159 K/mcL (140-400); Red Blood Count 3.51 M/mcL (4.19-5.50); Red Cell Distribution Width 12.7 % (11.5-14.5); White Blood Count 14.5 K/mcL (4.3-11.1)
[2019-04-10 03:49] LABS: BUN/Creatinine Ratio 20 (6-26); Blood Urea Nitrogen 26 mg/dL (6-20); Carbon Dioxide 23 mEq/L (23-29); Chloride 108 mEq/L (98-107); Glucose 117 mg/dL (70-105); Osmolality,Calculated 296 (280-300); Potassium 3.7 mEq/L (3.5-5.1); Sodium 140 mEq/L (136-145); eGFR For African Americans > 60 (> 60); eGFR For Non-African Americans 56 (> 60)
[2019-04-10 04:01] LABS: Neutrophils # 14.1 K/mcL (1.6-8.9)
[2019-04-10 04:20] LABS: Platelet Estimate Normal (Normal)
[2019-04-10] MEDS: *HR* Heparin 5,000 UNIT/ML VIAL SQ SCH ×2 (04:41→17:16)
[2019-04-10] MEDS: 0.9 % Sodium Chloride 1,000 ML IVC SCH ×2 (04:41→13:37)
[2019-04-10 04:43] LABS: Bilirubin,Urine Negative (Negative); Blood,Urine Large (Negative); Clarity,Urine Turbid (Clear); Color,Urine Yellow (Yellow); Glucose,Urine (UA) Normal (Normal); Ketones,Urine Negative (Negative); Leukocyte Esterase,Urine Large (Negative); Nitrite,Urine Negative (Negative); PH,Urine 6.5 pH Units (5.0-8.0); Protein,Urine 30 mg/dL (Neg-Trace); Specific Gravity,Urine < 1.005 (1.010-1.025); Urobilinogen,Urine Normal (Normal)
[2019-04-10 04:44] LABS: Hyaline Casts,Urine None Seen per lpf (None-Few); Squamous Epithelial Cell,Urine Moderate per lpf (None-Few); WBC,Urine TNTC per hpf (0-3)
[2019-04-10 04:55] LABS: Bacteria,Urine Few per hpf (None-Few); RBC,Urine 15-30 per hpf (0-3)
[2019-04-10] MEDS: cefTRIAXone 1,000 MG in Water for inj. (sterile) 20 ML 10 ML IVPB SCH (08:10)
--- NOTE | 2019-04-10 10:06 | Event Note ---
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 He is sent here from [facility] where he was taken by his cashier initially with a complaint of leg pain however he was found febrile at 102.6F and lactic acid of 2.7. Patient was started on IV fluid and IV antibiotics, he currently afebrile, vital signs were stable. Will continue current treatment, continue monitoring.
[~2019-04-10 23:04] MED LIST: *HR* Promethazine 25 MG/ML VIAL IVP PRN; Acetaminophen 325 MG TABLET PO PRN; traMADol 50 MG TABLET PO PRN
[2019-04-11 04:56] LABS: Basophils % 0.4 %; Eosinophils % 0.4 %; Hematocrit 34.4 % (37.5-50.1); Hemoglobin 11.5 g/dL (12.9-16.9); Immature Granulocytes % 0.6 % (0-4); Lymphocytes # 1.6 K/mcL (0.6-4.6); Lymphocytes % 14.2 %; Mean Corpuscular HGB Conc 33.4 g/dL (31.6-35.5); Mean Corpuscular Hemoglobin 32.5 pg (28.0-33.3); Mean Corpuscular Volume 97.2 fL (83.0-100.0); Mean Platelet Volume 9.9 fL (9.4-12.4); Monocytes # 0.8 K/mcL (0.0-1.3); Monocytes % 7.7 %; Neutrophils # 8.4 K/mcL (1.6-8.9); Platelet Count 137 K/mcL (140-400); Red Blood Count 3.54 M/mcL (4.19-5.50); Red Cell Distribution Width 12.9 % (11.5-14.5); Segmented Neutrophils % 76.7 %; White Blood Count 10.9 K/mcL (4.3-11.1)
[2019-04-11 05:07] LABS: BUN/Creatinine Ratio 23 (6-26); Blood Urea Nitrogen 25 mg/dL (6-20); Carbon Dioxide 24 mEq/L (23-29); Chloride 108 mEq/L (98-107); Glucose 86 mg/dL (70-105); Osmolality,Calculated 294 (280-300); Potassium 3.5 mEq/L (3.5-5.1); Sodium 140 mEq/L (136-145); eGFR For African Americans > 60 (> 60); eGFR For Non-African Americans > 60 (> 60)
[2019-04-11] MEDS: *HR* Heparin 5,000 UNIT/ML VIAL SQ SCH ×2 (05:23→16:43)
[2019-04-11] MEDS: cefTRIAXone 1,000 MG in Water for inj. (sterile) 20 ML 10 ML IVPB SCH (08:36)
--- NOTE | 2019-04-11 13:38 | Internal Med Progress Note ---
Hospitalist Progress Note - Encounter Date of Encounter: 04/11/19 Time of Encounter: 11:00 - Subjective Interval History: Patient was seen and examined at bedside. Patient has history of TBI and is cognitively delayed. He is oriented to name and can only answer yes. During assessment note the patient's left knee is tender to touch and he withdrawals a nd calls out when the is touched. No fevers overnight - Exam Vitals: Temp Pulse Resp BP Pulse Ox 97.7 F 86 16 121/78 95 04/11/19 12:18 04/11/19 12:18 04/11/19 12:18 04/11/19 12:18 04/11/19 12:18 Exam: Skin: Free of rash and discoloration.-Extremities 4 noted swelling Eyes: Sclera is white. There is no discharge from eyes. ENMT: Oral/pharyngeal mucosa is normal in appearance. There is no discharge from nose or ears. Respiratory: Normal breath sounds with no crackles and wheezes bilaterally. CV: Heart is regular with no gallop or murmur. GI: Abdomen is flat and soft with no palpable mass or visceromegaly. : There is no tenderness in patient's flanks bilaterally. Neuro exam: He has good strength in upper and lower extremities. He has normal eye movements. Psychiatric: He has normal affect. His thought process is appropriate to the situation. - Assessment and Plan (1) Left knee pain Current Visit: Yes Status: Acute Assessment and Plan: Patient presented to [facility] with complaints of left knee pain x-ray left knee does show-Tricompartmental arthritic changes most significant in the lateral compartment. No acute fracture or dislocation. 5 mm anterior faint density in the knee joint possibly a loose body. Patient did have a fever or elevated white count and lactate on presentation-improved after Rocephin we will continue Will consult orthopedic surgery for recommendations (2) DVT prophylaxis Current Visit: No Status: Acute Assessment and Plan: Heparin subcutaneous (3) Sepsis Current Visit: No Status: Resolved Assessment and Plan: Initially presented to [facility] with complaints of left knee pain he was found to have an elevated lactate as well as fever initially suspected urinary infection however urine culture with no growth. He did have a white count on presentation this facility blood cultures obtained initiated on Rocephin. Suspect possible septic joint left knee left knee x-ray does show 5 mm anterior faint density in the knee joint possibly a loose body. Continue Rocephin at this time-white count has improved no fevers overnight (4) UTI (urinary tract infection) Current Visit: No Status: Ruled-out Assessment and Plan: History of frequent UTIs-patient does self catheter at times-previous cultures grew Klebsiella-patient did not present with any urinary symptoms however did have a temperature elevated lactate and white count. Initial urinalysis did show large amount of leukocyte esterase urine microscopic WBC TNTC - urine culture obtained which showed no growth-he did receive Rocephin-does not appear to be symptomatic - Time Spent with Patient Total time spent is greater than 50% in coordination of care (as documented) at patient's floor/unit and/or counseling patient: Internal Medicine: Result - Labs CBC & Chem 7: 04/11/19 03:54 04/11/19 03:54 Labs: Short CBC 04/11/19 Range/Units 03:54 WBC 10.9 (4.3-11.1) K/mcL Hgb 11.5 L (12.9-16.9) g/dL Hct 34.4 L (37.5-50.1) % Plt Count 137 L (140-400) K/mcL Neutrophils # 8.4 (1.6-8.9) K/mcL BMP 04/11/19 03:54 Sodium 140 Potassium 3.5 Chloride 108 H Carbon Dioxide 24 BUN 25 H Creatinine 1.10 Glucose 86 Calcium 8.0 L Consult Discharge Plan - Plan Referrals: Arnaud Nixon DO [Primary Care Provider] - (Appointment has been requested.) (1) Left knee pain Qualifiers: Chronicity: acute Qualified Code(s): M25.562 - Pain in left knee (3) Sepsis Qualifiers: Sepsis type: sepsis due to unspecified organism Qualified Code(s): A41.9 - Sepsis, unspecified organism (4) UTI (urinary tract infection) Qualifiers: Urinary tract infection type: catheter-associated UTI Indwelling urinary catheter type: unspecified Encounter type: initial encounter Qualified Code(s): T83.511A - Infection and inflammatory reaction due to indwelling urethral catheter, initial encounter; N39.0 - Urinary tract infection, site not specified
[2019-04-11] MEDS ORDERED: ARIPiprazole 5 MG TABLET PO SCH (15:00)
--- NOTE | 2019-04-11 19:23 | Orthopedic Consult Note ---
Date of Encounter: 04/11/19 Time of Encounter: 19:15 History of Present Illness Chief complaint: Left knee pain HPI: Mr. Ovalles is a 58 year old male who states he has about a 4 week history of left knee pain. He states that the knee has been painful without significant interval change. Patient denies any acute trauma. Denies any acute swelling or episodes with the knee. Patient does have some developmental delay and obtaining an adequate history is somewhat limited. I have reviewed the patient's completed history and physical exam as well as the completed medical record. Examination reveals a pleasant 58-year-old gentleman in no acute distress while lying in the hospital bed. Examination is limited by the patient's ability to follow commands as well as some stiffness. Patient has no pain with rotation of the hip. Hip and knee flexion is intact. No evidence of a left knee effusion. Some medial joint line tenderness. No evidence of instability. Vital signs are stable. Patient is afebrile. White blood cell count was 14.5 on admission and has dropped to 10.9. Platelet count is minimally depressed at 137. Lactate is 1.5. Urine is markedly abnormal with a very turbid urine with positive leukocyte esterase but a negative urine culture. Nonweightbearing x-rays of the left knee are limited to AP and lateral views. She will rather significant arthritic changes especially involving the lateral compartment with significant narrowing is identified. There are tricompartmental spurs. There is prominence of the tibial tubercle. No evidence of a knee effusion on the x-ray. X-rays of the entire femur reveal a marked amount of arthritic changes within the left hip. Marked acetabular spurring is noted. Impression: Osteoarthritis left knee Recommendation: Doubt that attempts at arthrocentesis of the knee would be successful and would offer any additional information. Patient does not have an effusion. Knee is not significantly tender. Laboratory data is relatively normal at this time. The patient has been on intravenous antibiotics and these would probably have sterilize the knee any kind of infection was even present. Please advise me if I can be of any further assistance or if you feel that arthrocentesis of the knee is required. Thank you very much for allowing me to see and treat Mr. Ovalles. Sincerely, José Miguel Mayes,DO Past Med Surg Social Fam HX - Past Medical History Medical history: arthritis, CVA, dementia, GERD, seizures Additional medical history: head injury, peg tube placement, MRDD, chronic sinusitis, left sided weakness, Urethrial stricture - straight cathed at home. Psychiatric history: no psych history, depression, PTSD - Past Surgical History Surgical History: hip replacement, tracheostomy Additional surgical history: feeding tube - removed - Social History Smoking Status: Never smoker Smokeless Tobacco Status: No Alcohol use: none Drug use: none Medications and Allergies Aripiprazole [Abilify] 5 mg PO 1500 06/27/15 [History] Ascorbate Calcium [Vitamin C] 500 mg PO DAILY 03/26/16 [History] Baclofen [Lioresal] 20 mg PO QAM 03/26/16 [History] Bethanechol Chloride [Urecholine] 25 mg PO TID 03/26/16 [History] Cetirizine HCl [Zyrtec] 10 mg PO DAILY 03/26/16 [History] Citalopram Hydrobromide [Citalopram HBr] 40 mg PO QAM 03/26/16 [History] Meloxicam [Mobic] 7.5 mg PO DAILY 03/26/16 [History] ARIPiprazole [Abilify] 10 mg PO 0700 07/05/18 [History] Albuterol Sulfate [Ventolin Hfa] 2 puff IH Q4H PRN 07/05/18 [History] Calcium Carbonate/Vitamin D3 [Calcium 600-Vit D3 400 Tablet] 1 tab PO QAM 07/05/18 [History] Hydrochlorothiazide [Microzide] 12.5 mg PO DAILY 07/05/18 [History] Baclofen [Lioresal] 10 mg PO QPM 04/11/19 [History] Cyanocobalamin (Vitamin B-12) [Vitamin B-12] 1,000 mcg PO DAILY 04/11/19 [History] Ferrous Sulfate [Iron] 325 mg PO BID 04/11/19 [History] Methylcellulose [Citrucel] 1,000 mg PO QAM 04/11/19 [History] Omeprazole [PriLOSEC] 40 mg PO DAILY 04/11/19 [History] Ranitidine HCl [Heartburn Relief] 150 mg PO QPM PRN 04/11/19 [History] Zinc Oxide [Boudreauxs] 1 appl TP 8XD 04/11/19 [History] Allergy/AdvReac Type Severity Reaction Status Date / Time Anion Exchange Resins Allergy See Verified 04/11/19 14:00 Comments cholestyramine Allergy Anaphylaxis Verified 04/11/19 14:00 indomethacin Allergy Anaphylaxis Verified 04/11/19 14:00 NSAIDS (Non-Steroidal Allergy See Verified 04/11/19 14:00 Anti-Inflamma Comments All Systems Reviewed: The remainder of the systems were reviewed and are negative Physical Exam - Constitutional Vitals: Temp Pulse Resp BP Pulse Ox 98.7 F 84 16 116/79 94 04/11/19 18:50 04/11/19 18:50 04/11/19 18:50 04/11/19 18:50 04/11/19 18:50 Results - Labs Result Diagrams: 04/11/19 03:54 04/11/19 03:54 Labs: Abnormal lab results WBC 14.5 K/mcL (4.3-11.1) H 04/10/19 03:15 RBC 3.54 M/mcL (4.19-5.50) L 04/11/19 03:54 Hgb 11.5 g/dL (12.9-16.9) L 04/11/19 03:54 Hct 34.4 % (37.5-50.1) L 04/11/19 03:54 Plt Count 137 K/mcL (140-400) L 04/11/19 03:54 14.1 K/mcL (1.6-8.9) H 04/10/19 03:15 0.1 K/mcL (0.6-4.6) L 04/10/19 03:15 Chloride 108 mEq/L (98-107) H 04/11/19 03:54 BUN 25 mg/dL (6-20) H 04/11/19 03:54 1.32 mg/dL (0.70-1.30) H 04/10/19 03:15 Est GFR (Non-Af Amer) 56 (> 60) L 04/10/19 03:15 Glucose 117 mg/dL (70-105) H 04/10/19 03:15 Calcium 8.0 mg/dL (8.6-10.3) L 04/11/19 03:54 Turbid (Clear) A 04/10/19 04:15 Ur Specific Harrod < 1.005 (1.010-1.025) L 04/10/19 04:15 30 mg/dL (Neg-Trace) H 04/10/19 04:15 Large (Negative) H 04/10/19 04:15 Ur Leukocyte Esterase Large (Negative) H 04/10/19 04:15 15-30 per hpf (0-3) H 04/10/19 04:15 TNTC per hpf (0-3) H 04/10/19 04:15 Ur Squamous Epith Cells Moderate per lpf (None-Few) H 04/10/19 04:15 Ur Culture Indicated? YES (NO) A 04/10/19 04:15 H & H 04/11/19 Range/Units 03:54 Hgb 11.5 L (12.9-16.9) g/dL Hct 34.4 L (37.5-50.1) % All other labs normal. - Diagnostic results Hip x-ray: image reviewed Knee x-ray: image reviewed Consult Discharge Plan - Plan Referrals: Arnaud Nixon DO [Primary Care Provider] - 04/16/19 1:00 pm (Appointment has been requested.)
[2019-04-11] MEDS ORDERED: Famotidine 20 MG TABLET PO PRN (22:38)
[2019-04-12 05:22] LABS: Basophils % 0.5 %; Eosinophils # 0.3 K/mcL (0.0-0.6); Eosinophils % 3.3 %; Hematocrit 37.9 % (37.5-50.1); Hemoglobin 12.8 g/dL (12.9-16.9); Immature Granulocytes % 0.6 % (0-4); Lymphocytes # 1.9 K/mcL (0.6-4.6); Lymphocytes % 23.4 %; Mean Corpuscular HGB Conc 33.8 g/dL (31.6-35.5); Mean Corpuscular Volume 97.7 fL (83.0-100.0); Mean Platelet Volume 9.8 fL (9.4-12.4); Monocytes # 0.8 K/mcL (0.0-1.3); Monocytes % 9.5 %; Neutrophils # 5.1 K/mcL (1.6-8.9); Platelet Count 165 K/mcL (140-400); Red Blood Count 3.88 M/mcL (4.19-5.50); Red Cell Distribution Width 12.7 % (11.5-14.5); Segmented Neutrophils % 62.7 %; White Blood Count 8.1 K/mcL (4.3-11.1)
[2019-04-12] MEDS: *HR* Heparin 5,000 UNIT/ML VIAL SQ SCH (06:32)
[2019-04-12] MEDS ORDERED: ARIPiprazole 10 MG TABLET PO SCH (07:00)
[2019-04-12] MEDS: cefTRIAXone 1,000 MG in Water for inj. (sterile) 20 ML 10 ML IVPB SCH (08:23)
[2019-04-12] MEDS ORDERED: Loratadine 10 MG TABLET PO SCH (09:00)
[2019-04-12 11:22] VITALS: BP 135/82
--- NOTE | 2019-04-12 13:40 | Discharge Summary ---
- NOTES TO OUTPATIENT PROVIDER Notes to Outpatient Provider: Presented with left knee pain was found to have fever and white count concerning for UTI urine culture negative received 3 days of Rocephin. Left knee did show arthritic changes and was evaluated by orthopedics with no effusion noted Orders not resulted at time of discharge: Pending orders 04/10/19 03:15 Culture,Blood [BC] Routine Date of Encounter: 04/12/19 Time of Encounter: 13:38 - Discharge Diagnosis (1) Left knee pain Priority: Primary Status: Acute Qualifiers: Chronicity: acute Qualified Code(s): M25.562 - Pain in left knee Hospital course: Mr. 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 Upon presentation no initial leukocytosis UA was suggestive of infection and he was initiated on empiric antibiotics. Urine culture was negative he received 3 days of Rocephin. Fever did subside and lactate improved he did have a slight peak in white count. Left knee x-ray did show arthritic changes as well as possible loose body. Orthopedics was consulted-no effusion noted. Patient has been afebrile and is back to his baseline currently ready for discharge back to home with home health services - Time Spent with Patient Total time spent providing and/or coordinating discharge services: - Discharge Medications Prescriptions: Continued Aripiprazole [Abilify] 5 mg PO 1500 Meloxicam [Mobic] 7.5 mg PO DAILY Baclofen [Lioresal] 20 mg PO QAM Citalopram Hydrobromide [Citalopram HBr] 40 mg PO QAM Cetirizine HCl [Zyrtec] 10 mg PO DAILY Bethanechol Chloride [Urecholine] 25 mg PO TID Ascorbate Calcium [Vitamin C] 500 mg PO DAILY ARIPiprazole [Abilify] 10 mg PO 0700 Albuterol Sulfate [Ventolin Hfa] 2 puff IH Q4H PRN PRN Reason: Shortness Of Breath Calcium Carbonate/Vitamin D3 [Calcium 600-Vit D3 400 Tablet] 1 tab PO QAM Hydrochlorothiazide [Microzide] 12.5 mg PO DAILY Baclofen [Lioresal] 10 mg PO QPM Cyanocobalamin (Vitamin B-12) [Vitamin B-12] 1,000 mcg PO DAILY Ferrous Sulfate [Iron] 325 mg PO BID Methylcellulose [Citrucel] 1,000 mg PO QAM Omeprazole [PriLOSEC] 40 mg PO DAILY Ranitidine HCl [Heartburn Relief] 150 mg PO QPM PRN PRN Reason: Heartburn Zinc Oxide [Boudreauxs] 1 appl TP 8XD Home Medications: Aripiprazole [Abilify] 5 mg PO 1500 06/27/15 [History] Ascorbate Calcium [Vitamin C] 500 mg PO DAILY 03/26/16 [History] Baclofen [Lioresal] 20 mg PO QAM 03/26/16 [History] Bethanechol Chloride [Urecholine] 25 mg PO TID 03/26/16 [History] Cetirizine HCl [Zyrtec] 10 mg PO DAILY 03/26/16 [History] Citalopram Hydrobromide [Citalopram HBr] 40 mg PO QAM 03/26/16 [History] Meloxicam [Mobic] 7.5 mg PO DAILY 03/26/16 [History] ARIPiprazole [Abilify] 10 mg PO 0700 07/05/18 [History] Albuterol Sulfate [Ventolin Hfa] 2 puff IH Q4H PRN 07/05/18 [History] Calcium Carbonate/Vitamin D3 [Calcium 600-Vit D3 400 Tablet] 1 tab PO QAM 07/05/18 [History] Hydrochlorothiazide [Microzide] 12.5 mg PO DAILY 07/05/18 [History] Baclofen [Lioresal] 10 mg PO QPM 04/11/19 [History] Cyanocobalamin (Vitamin B-12) [Vitamin B-12] 1,000 mcg PO DAILY 04/11/19 [History] Ferrous Sulfate [Iron] 325 mg PO BID 04/11/19 [History] Methylcellulose [Citrucel] 1,000 mg PO QAM 04/11/19 [History] Omeprazole [PriLOSEC] 40 mg PO DAILY 04/11/19 [History] Ranitidine HCl [Heartburn Relief] 150 mg PO QPM PRN 04/11/19 [History] Zinc Oxide [Boudreauxs] 1 appl TP 8XD 04/11/19 [History] Allergies/Adverse Reactions: Allergy/AdvReac Type Severity Reaction Status Date / Time Anion Exchange Resins Allergy See Verified 04/11/19 14:00 Comments cholestyramine Allergy Anaphylaxis Verified 04/11/19 14:00 indomethacin Allergy Anaphylaxis Verified 04/11/19 14:00 NSAIDS (Non-Steroidal Allergy See Verified 04/11/19 14:00 Anti-Inflamma Comments Date of admission: 04/10/19 01:12 Primary care physician: Arnaud Nixon DO Consults: 04/10/19 01:49 Consult to Algebraist [CONS] Routine Reason for SW Consult: Patient with MRDD admitted to the hospital. It is reported by the external facility that transferred the patient that he has home health in place and wears a CPAP at night. 04/11/19 11:11 Consult to Orthopedic Surgery [CONS] Routine Consulting Provider: Orthopedic and Sports Medicine Reason for Consult: concern for septic joint Time Notified: 11:12 Call Completed: Yes Discharging clinician: Ness Wynne Anticipated date of discharge: 04/12/19 - Constitutional Vitals: Temp Pulse Resp BP Pulse Ox 97.7 F 85 17 135/82 97 04/12/19 11:21 04/12/19 11:21 04/12/19 11:21 04/12/19 11:21 04/12/19 11:21 Exam: Skin: Free of rash and discoloration. Eyes: Sclera is white. There is no discharge from eyes. ENMT: Oral/pharyngeal mucosa is normal in appearance. There is no discharge from nose or ears. Respiratory: Normal breath sounds with no crackles and wheezes bilaterally. CV: Heart is regular with no gallop or murmur. GI: Abdomen is flat and soft with no palpable mass or visceromegaly. : There is no tenderness in patient's flanks bilaterally. Neuro exam: He has good strength in upper and lower extremities. He has normal eye movements. Psychiatric: He has normal affect. His thought process is appropriate to the situation. - Patient Status Disposition: Home Health Service Condition: Good Functional capacity at discharge: uses cane/walker Overall status at discharge: patient is back to baseline - Discharge Instructions Follow Up With: Arnaud Nixon DO [Primary Care Provider] - 04/16/19 1:00 pm (Appointment has been requested.) - Diet and Activity Activity: increase activity as tolerated Diet: advance to your usual diet
--- NOTE | 2019-04-12 13:48 | Physician Discharge Referral ---
Home Health/Hosp Referral Info Transfer to: Home Health Attending Provider: luz marina malin Provider in Charge Post Discharge: PCP - Diagnosis (1) Left knee pain Priority: Secondary Status: Acute (2) UTI (urinary tract infection) Priority: Primary Status: Ruled-out - Respiratory Orders Smoking Cessation: Smoking cessation has been advised. For more information, call the [place] Tobacco Quit Line at 7-104-CTUY-NOW. - Diet/Nutrition Diet/Nutrition: List: Advanced soft diet chopped meat - Services Needed Following services are medically necessary services: Nursing, Home Health Aide - Transfer Medications Home Medications: Aripiprazole [Abilify] 5 mg PO 1500 06/27/15 [History] Ascorbate Calcium [Vitamin C] 500 mg PO DAILY 03/26/16 [History] Baclofen [Lioresal] 20 mg PO QAM 03/26/16 [History] Bethanechol Chloride [Urecholine] 25 mg PO TID 03/26/16 [History] Cetirizine HCl [Zyrtec] 10 mg PO DAILY 03/26/16 [History] Citalopram Hydrobromide [Citalopram HBr] 40 mg PO QAM 03/26/16 [History] Meloxicam [Mobic] 7.5 mg PO DAILY 03/26/16 [History] ARIPiprazole [Abilify] 10 mg PO 0700 07/05/18 [History] Albuterol Sulfate [Ventolin Hfa] 2 puff IH Q4H PRN 07/05/18 [History] Calcium Carbonate/Vitamin D3 [Calcium 600-Vit D3 400 Tablet] 1 tab PO QAM 07/05/18 [History] Hydrochlorothiazide [Microzide] 12.5 mg PO DAILY 07/05/18 [History] Baclofen [Lioresal] 10 mg PO QPM 04/11/19 [History] Cyanocobalamin (Vitamin B-12) [Vitamin B-12] 1,000 mcg PO DAILY 04/11/19 [History] Ferrous Sulfate [Iron] 325 mg PO BID 04/11/19 [History] Methylcellulose [Citrucel] 1,000 mg PO QAM 04/11/19 [History] Omeprazole [PriLOSEC] 40 mg PO DAILY 04/11/19 [History] Ranitidine HCl [Heartburn Relief] 150 mg PO QPM PRN 04/11/19 [History] Zinc Oxide [Boudreauxs] 1 appl TP 8XD 04/11/19 [History] Allergies/Adverse Reactions: Allergy/AdvReac Type Severity Reaction Status Date / Time Anion Exchange Resins Allergy See Verified 04/11/19 14:00 Comments cholestyramine Allergy Anaphylaxis Verified 04/11/19 14:00 indomethacin Allergy Anaphylaxis Verified 04/11/19 14:00 NSAIDS (Non-Steroidal Allergy See Verified 04/11/19 14:00 Anti-Inflamma Comments Certification: Further, I certify that my clinical findings support that this patient is homebound (i.e. absences from home require considerable and taxing effort and are for medical reasons or scientologist services or infrequently or short duration when for other reasons) because: Homebound Reason: Leaving home requires considerable and taxing effort due to condition Attestation: My signature below is to certify that this patient is under my care and that I, or nurse practitioner, or a physician's digital sales assistant working with me, has a [id number] encounter with this patient.
== END 2019-04-12 15:27 | disposition home health service (06) ==
LOC: 3BNU
PROVIDERS: ADMIT Family Medicine; ATTEND Family Medicine